=== PATIENT | male | born 1960 | race Caucasian/White ===

== ENCOUNTER 2021-11-28 12:18 | Outpatient (CLI) | payer OTHER, SELFPAY ==
--- NOTE | 2021-11-28 | ECHO_ITS ---
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 Summary 1. Complete two-dimensional, color flow and Doppler transthoracic echocardiogram is performed. 2. Normal left ventricular size. Mild sigmoid hypertrophy of the septum but otherwise no significant left ventricular hypertrophy. Good systolic function of all segments with an ejection fraction 68% and no segmental wall motion abnormalities. Normal diastolic function. 3. Global longitudinal strain was -20%, normal. 4. Mild thickening of the mitral valve leaflets with mild prolapse of the anterior leaflet. Trace mitral regurgitation. 5. The aortic valve is trileaflet. 6. Mild left atrial enlargement. 7. Mildly dilated aortic root at 4.1 cm. Sinus of Valsalva was mild to moderately dilated 4.7 cm. 8. Normal sinus rhythm. Left Ventricle Left ventricular chamber dimension is normal. Left ventricular systolic function is normal, estimated at Empty. There is no increased left ventricular wall thickness. Left ventricular septal wall motion is normal. The left ventricular diastolic function is normal. Global longitudinal strain is normal at -20 %. Right Ventricle Right ventricular chamber dimension is normal. Right ventricular systolic function is normal. Left Atria Left atrial chamber dimension is mildly enlarged. Right Atria Right atrial chamber dimension is normal. Aortic Valve The aortic valve is trileaflet. There is no aortic valve sclerosis. There is no aortic valve stenosis. There is no aortic valve regurgitation. Pulmonic Valve The pulmonic valve is normal. There is no pulmonic valve stenosis. There is no pulmonic regurgitation. Mitral Valve The mitral valve has thickened leaflets and anterior prolapse. There is no mitral valve stenosis. There is trace mitral valve regurgitation. Tricuspid Valve The tricuspid valve leaflets are normal. There is no significant tricuspid valve stenosis. There is trace tricuspid valve regurgitation. Mild pulmonary hypertension, estimated pulmonary arterial systolic pressure is 37 mmHg. Pericardium/Pleural The pericardium appears normal. There is no pericardial effusion. Inferior Vena Cava Normal inferior vena cava with >50% collapse upon inspiration consistent with Empty right atrial pressure, 10 mmHg. Aorta The aortic root size at the sinus of Valsalva is mildly dilated. The prox ascending aorta size is moderately dilated. Left Ventricular Outflow Tract Name Value Normal LVOT 2D LVOT Diameter 2.1 cm LVOT Doppler ---
== END 2021-11-28 12:19 | disposition home or self-care (01) ==
PROVIDERS: PCP Family Medicine; Visit Provider Internal Medicine Hematology & Oncology
DX: C50.922 Malignant neoplasm of unspecified site of left male breast (principal); Z17.0 Estrogen receptor positive status [ER+]
CPT/HCPCS: 93306

== ENCOUNTER 2022-08-15 06:37 | Outpatient (CLI) | payer OTHER, SELFPAY ==
--- NOTE | ~2022-08-15 | CT_ITS ---
EXAMINATION: CT diagnostic chest wo con DATE: 08/15/2022 07:00 INDICATION: Lung nodule. TECHNIQUE: Computed tomography (CT) of the chest was performed without intravenous contrast. The dose -length product was 123.81 mGy-cm. Automated exposure control and iterative reconstruction technique were employed. COMPARISON: CT dated 08/15/2022 FINDINGS: Heart size is normal. No significant pleural or pericardial effusion. There is atherosclero sis of the aorta and coronary arteries. No mediastinal or hilar lymph node enlargement. There are jennifer gical clips in the left axilla. There are bilateral noncalcified pulmonary nodules. In the right uppe r lobe anterior to the fissure there is a 5 mm nodule, image 55. There is a 3 mm nodule in the right upper lobe, image 76. There is a 3 mm nodule right upper lobe, image 81. There are left upper lobe no dules measuring 3 mm or less. There are groundglass opacities peripherally in the right upper lobe, p ossibly small airway's disease. Mild emphysema. There are a few small left lower lobe nodules, larges t located medially abutting the pleural surface, image 98, measuring 5 mm. No pneumothorax. Central l ine tip in the SVC. There is a punctate nonobstructing right renal stone measuring 2 mm. Moderate tho racic spondylosis. Mild superior endplate compression deformity of T3, likely chronic. No focal lytic or blastic lesions.. IMPRESSION: 1. Scattered bilateral pulmonary nodules measuring 5 mm or less, likely benign. Recommend follow-up l ow dose CT chest in 12 months. 2: Peripheral groundglass opacities of the left upper lobe which may be secondary to small airway di sease or infectious/inflammatory process. Reviewed, dictated and finalized at location A. ICAL ABSTRACTOR IMPRESSION: 1. Scattered bilateral pulmonary nodules measuring 5 mm or less, likely benign. Recommend follow-up low dose CT chest in 12 months. 2: Peripheral groundglass opacities of the left upper lobe which may be second rodolfo to small airway disease or infectious/inflammatory process.
== END 2022-08-15 06:38 | disposition home or self-care (01) ==
PROVIDERS: PCP Family Medicine; Visit Provider Internal Medicine Hematology & Oncology
DX: R91.8 Other nonspecific abnormal finding of lung field (principal)
CPT/HCPCS: 71250

== ENCOUNTER 2023-05-02 13:38 | Outpatient (RCR) | payer OTHER, SELFPAY ==
[2021-10-15 12:17] LABS: Basophils Absolute Auto 0.1 K/mm3 (0.0-0.1); Basophils Percent Auto 0.8 % (0.2-1.2); Eosinophils Absolute Auto 0.3 K/mm3 (0-0.3); Eosinophils Percent Auto 3.5 % (0-4.4); Hematocrit 39.2 % (42.0-52.0); Hemoglobin 12.4 g/dL (14.0-18.0); Immature Granulocyte Absolute 0.03 K/mm3 (0.00-0.031); Immature Granulocyte Percent A 0.3 % (0-0.5); Lymphocytes Absolute Auto 1.55 K/mm3 (0.9-3.2); Lymphocytes Percent Auto 16.8 % (18.3-44.2); Mean Corpuscular HGB Conc 31.6 g/dl (32-36); Mean Corpuscular Hemoglobin 31.1 pg (26-34); Mean Corpuscular Volume 98.2 fl (80-100); Mean Platelet Volume 10.3 fl (7.4-10.4); Monocytes Absolute Auto 0.7 K/mm3 (0.1-0.6); Monocytes Percent Auto 7.4 % (2.6-8.5); Neutrophils Absolute Auto 6.6 K/mm3 (1.3-6.7); Neutrophils Percent Auto 71.2 % (45.5-73.1); Platelet Count Result 249 k/mm3 (150-375); Red Blood Count 3.99 M/mm3 (4.6-6.20); Red Cell Distribution Width 13.8 % (11.5-14.5); White Blood Count 9.2 K/mm3 (4.5-10.0)
[2021-10-15 12:24] LABS: Blood Urea Nitrogen 8 mg/dL (8-26); Carbon Dioxide 30 mmol/L (22-30); Chloride 101 mmol/L (98-109); Estimated CRCL calculation 96 ml/min; Estimated Glomerular Filt Rate > 60; Glucose 81 mg/dL (70-105); Potassium 3.7 mmol/L (3.5-4.9); Sodium 141 mmol/L (138-146)
[2021-10-15 12:28] VITALS: BP 146/93; PULSE 62; RESP 18; TEMP 36.8; O2SAT 99
[2021-10-15] MEDS: SODIUM CHLORIDE 0.9% IV 500 ML 999 ML IVPB (12:57)
[2021-10-15] MEDS: PALONOSETRON HCL 0.25 MG/5 ML VIAL IV PUSH (12:59)
[2021-10-15] MEDS: FOSAPREPITANT DIMEGLUMINE 150 MG in SODIUM CHLORIDE 0.9% IV 150 ML 300 MG IVPB (12:59)
[2021-10-15] MEDS: HEPARIN SODIUM LOCK FLUSH 500 UNITS/5 ML SYRINGE IV PUSH (14:52)
[2021-10-15] MEDS: PEGFILGRASTIM (ONPRO KIT) 6 MG/0.6 ML SYRINGE SUB-Q (14:52)
--- NOTE | 2021-10-15 15:09 | PC.NURSE ---
hydration fluid ran concurrently with another infusion. No charges were incurred.
[2021-10-15 16:45] LABS: Alanine Aminotransferase 22 U/L (4-50); Albumin Level 4.2 g/dL (3.5-5.1); Alkaline Phosphatase 71 U/L (38-126); Anion Gap 5 mmol/L (8-16); Aspartate Amino Transferase 45 U/L (17-59); Bilirubin,Total 0.6 mg/dL (0.2-1.3); Blood Urea Nitrogen 10 mg/dL (9-20); Calcium 9.6 mg/dL (8.4-10.2); Carbon Dioxide 29 mmol/L (22-30); Chloride 103 mmol/L (98-107); Estimated CRCL calculation 96 ml/min; Estimated Glomerular Filt Rate > 60; Glucose 78 mg/dL (65-110); Potassium 3.8 mmol/L (3.4-5.0); Sodium 137 mmol/L (137-145)
[2021-10-29 11:30] LABS: Basophils Absolute Auto 0.1 K/mm3 (0.0-0.1); Eosinophils Absolute Auto 0.2 K/mm3 (0-0.3); Eosinophils Percent Auto 1.3 % (0-4.4); Hematocrit 38.7 % (42.0-52.0); Hemoglobin 12.3 g/dL (14.0-18.0); Immature Granulocyte Absolute 0.98 K/mm3 (0.00-0.031); Lymphocytes Absolute Auto 1.46 K/mm3 (0.9-3.2); Lymphocytes Percent Auto 11.9 % (18.3-44.2); Mean Corpuscular HGB Conc 31.8 g/dl (32-36); Mean Corpuscular Hemoglobin 31.6 pg (26-34); Mean Corpuscular Volume 99.5 fl (80-100); Mean Platelet Volume 9.9 fl (7.4-10.4); Monocytes Absolute Auto 0.8 K/mm3 (0.1-0.6); Monocytes Percent Auto 6.5 % (2.6-8.5); Neutrophils Absolute Auto 8.7 K/mm3 (1.3-6.7); Neutrophils Percent Auto 71.3 % (45.5-73.1); Platelet Count Result 272 k/mm3 (150-375); Red Blood Count 3.89 M/mm3 (4.6-6.20); Red Cell Distribution Width 14.3 % (11.5-14.5); White Blood Count 12.3 K/mm3 (4.5-10.0)
[2021-10-29 11:38] LABS: Blood Urea Nitrogen 16 mg/dL (8-26); Carbon Dioxide 28 mmol/L (22-30); Chloride 102 mmol/L (98-109); Estimated CRCL calculation 96 ml/min; Estimated Glomerular Filt Rate > 60; Glucose 95 mg/dL (70-105); Potassium 3.9 mmol/L (3.5-4.9); Sodium 141 mmol/L (138-146)
[2021-10-29 11:39] VITALS: BP 149/73; PULSE 68; RESP 18; TEMP 36.1; O2SAT 100
[2021-10-29] MEDS: FOSAPREPITANT DIMEGLUMINE 150 MG in SODIUM CHLORIDE 0.9% IV 150 ML 300 MG IVPB (11:59)
[2021-10-29] MEDS: PALONOSETRON HCL 0.25 MG/5 ML VIAL IV PUSH (11:59)
[2021-10-29] MEDS: SODIUM CHLORIDE 0.9% IV 500 ML 999 ML IVPB (12:41)
[2021-10-29 13:04] LABS: Alanine Aminotransferase 18 U/L (4-50); Albumin Level 4.2 g/dL (3.5-5.1); Alkaline Phosphatase 82 U/L (38-126); Anion Gap 7 mmol/L (8-16); Aspartate Amino Transferase 20 U/L (17-59); Bilirubin,Total 0.3 mg/dL (0.2-1.3); Blood Urea Nitrogen 16 mg/dL (9-20); Calcium 9.3 mg/dL (8.4-10.2); Carbon Dioxide 26 mmol/L (22-30); Chloride 105 mmol/L (98-107); Estimated CRCL calculation 96 ml/min; Estimated Glomerular Filt Rate > 60; Glucose 96 mg/dL (65-110); Sodium 138 mmol/L (137-145)
[2021-10-29 13:36] VITALS: BP 147/83
[2021-10-29] MEDS: HEPARIN SODIUM LOCK FLUSH 500 UNITS/5 ML SYRINGE IV PUSH (13:40)
[2021-11-12 12:00] LABS: Basophils Absolute Auto 0.1 K/mm3 (0.0-0.1); Basophils Percent Auto 3.4 % (0.2-1.2); Eosinophils Absolute Auto 0.1 K/mm3 (0-0.3); Eosinophils Percent Auto 2.9 % (0-4.4); Hemoglobin 10.1 g/dL (14.0-18.0); Immature Granulocyte Absolute 0.01 K/mm3 (0.00-0.031); Immature Granulocyte Percent A 0.5 % (0-0.5); Lymphocytes Absolute Auto 0.77 K/mm3 (0.9-3.2); Lymphocytes Percent Auto 37.2 % (18.3-44.2); Mean Corpuscular HGB Conc 31.6 g/dl (32-36); Mean Corpuscular Hemoglobin 31.9 pg (26-34); Mean Corpuscular Volume 100.9 fl (80-100); Mean Platelet Volume 9.6 fl (7.4-10.4); Monocytes Absolute Auto 0.4 K/mm3 (0.1-0.6); Monocytes Percent Auto 17.4 % (2.6-8.5); Neutrophils Absolute Auto 0.8 K/mm3 (1.3-6.7); Neutrophils Percent Auto 38.6 % (45.5-73.1); Platelet Count Result 176 k/mm3 (150-375); Red Blood Count 3.17 M/mm3 (4.6-6.20); Red Cell Distribution Width 14.6 % (11.5-14.5); White Blood Count 2.1 K/mm3 (4.5-10.0)
[2021-11-12 12:03] LABS: Blood Urea Nitrogen 12 mg/dL (8-26); Carbon Dioxide 28 mmol/L (22-30); Chloride 103 mmol/L (98-109); Estimated CRCL calculation 96 ml/min; Estimated Glomerular Filt Rate > 60; Glucose 84 mg/dL (70-105); Potassium 3.9 mmol/L (3.5-4.9); Sodium 141 mmol/L (138-146)
[2021-11-12 12:19] VITALS: BP 145/80; PULSE 66; TEMP 36.1; O2SAT 100
[2021-11-12] MEDS: FOSAPREPITANT DIMEGLUMINE 150 MG in SODIUM CHLORIDE 0.9% IV 150 ML 300 MG IVPB (12:37)
[2021-11-12] MEDS: PALONOSETRON HCL 0.25 MG/5 ML VIAL IV PUSH (12:37)
[2021-11-12 13:01] LABS: Alanine Aminotransferase 16 U/L (4-50); Albumin Level 3.7 g/dL (3.5-5.1); Alkaline Phosphatase 63 U/L (38-126); Anion Gap 3 mmol/L (8-16); Aspartate Amino Transferase 21 U/L (17-59); Bilirubin,Total < 0.1 mg/dL (0.2-1.3); Blood Urea Nitrogen 13 mg/dL (9-20); Calcium 8.4 mg/dL (8.4-10.2); Carbon Dioxide 29 mmol/L (22-30); Chloride 106 mmol/L (98-107); Estimated CRCL calculation 96 ml/min; Estimated Glomerular Filt Rate > 60; Glucose 81 mg/dL (65-110); Potassium 3.8 mmol/L (3.4-5.0); Sodium 138 mmol/L (137-145)
[2021-11-12] MEDS: SODIUM CHLORIDE 0.9% IV 500 ML 999 ML IVPB (13:30)
[2021-11-12] MEDS: PEGFILGRASTIM (ONPRO KIT) 6 MG/0.6 ML SYRINGE SUB-Q (14:46)
[2021-11-12] MEDS: HEPARIN SODIUM LOCK FLUSH 500 UNITS/5 ML SYRINGE IV PUSH (14:52)
[2021-11-12 14:59] VITALS: BP 122/81
[2021-11-26 10:17] LABS: Hematocrit 36.3 % (42.0-52.0); Hemoglobin 11.4 g/dL (14.0-18.0); Mean Corpuscular HGB Conc 31.4 g/dl (32-36); Mean Corpuscular Hemoglobin 31.6 pg (26-34); Mean Corpuscular Volume 100.6 fl (80-100); Platelet Count Result 258 k/mm3 (150-375); Red Blood Count 3.61 M/mm3 (4.6-6.20); Red Cell Distribution Width 15.8 % (11.5-14.5); White Blood Count 18.9 K/mm3 (4.5-10.0)
[2021-11-26 10:25] LABS: Blood Urea Nitrogen 19 mg/dL (8-26); Carbon Dioxide 25 mmol/L (22-30); Chloride 102 mmol/L (98-109); Estimated CRCL calculation 96 ml/min; Estimated Glomerular Filt Rate > 60; Glucose 117 mg/dL (70-105); Sodium 140 mmol/L (138-146)
[2021-11-26 10:26] LABS: Band Neutrophils Percent 17 % (0-6); Lymphocytes Absolute Manual 0.37 K/mm3 (1.1-4.5); Monocytes Absolute Manual 0.75 K/mm3 (0.1-0.90); Monocytes Percent Manual 4 % (3-9); Neutrophils Absolute Manual 17.76 K/mm3 (1.3-6.7); Neutrophils Percent Manual 77 % (46-73); Platelet Estimate Adequate (Adequate); Total Cells Counted 100
[2021-11-26 10:30] VITALS: BP 150/85; PULSE 68; TEMP 36.1; O2SAT 100
[2021-11-26] MEDS: diphenhydrAMINE HCl INJ 50 MG/ML VIAL 25 MG IV PUSH (10:47)
[2021-11-26] MEDS: ONDANSETRON INJ 4 MG/2 ML VIAL 8 MG IV PUSH (10:47)
[2021-11-26] MEDS: SODIUM CHLORIDE 0.9% IVPB (10:48)
[2021-11-26] MEDS: DEXAMETHASONE SOD IVPB (10:48)
[2021-11-26] MEDS: FAMOTIDINE 20 MG/2 ML VIAL IV PUSH (10:48)
[2021-11-26 14:36] VITALS: BP 148/88
[2021-11-26] MEDS: HEPARIN SODIUM LOCK FLUSH 500 UNITS/5 ML SYRINGE IV PUSH (14:40)
[2021-11-26 15:44] LABS: Alanine Aminotransferase 17 U/L (4-50); Albumin Level 4.3 g/dL (3.5-5.1); Alkaline Phosphatase 90 U/L (38-126); Anion Gap 6 mmol/L (8-16); Aspartate Amino Transferase 21 U/L (17-59); Bilirubin,Total 0.1 mg/dL (0.2-1.3); Blood Urea Nitrogen 18 mg/dL (9-20); Calcium 9.1 mg/dL (8.4-10.2); Carbon Dioxide 24 mmol/L (22-30); Chloride 105 mmol/L (98-107); Estimated CRCL calculation 96 ml/min; Estimated Glomerular Filt Rate > 60; Glucose 111 mg/dL (65-110); Sodium 135 mmol/L (137-145)
[2021-12-10 08:31] LABS: Basophils Percent Auto 0.2 % (0.2-1.2); Hematocrit 34.5 % (42.0-52.0); Hemoglobin 11.1 g/dL (14.0-18.0); Immature Granulocyte Absolute 0.03 K/mm3 (0.00-0.031); Immature Granulocyte Percent A 0.5 % (0-0.5); Lymphocytes Percent Auto 7.6 % (18.3-44.2); Mean Corpuscular HGB Conc 32.2 g/dl (32-36); Mean Corpuscular Hemoglobin 32.1 pg (26-34); Mean Corpuscular Volume 99.7 fl (80-100); Mean Platelet Volume 9.6 fl (7.4-10.4); Monocytes Absolute Auto 0.4 K/mm3 (0.1-0.6); Monocytes Percent Auto 5.9 % (2.6-8.5); Neutrophils Absolute Auto 5.6 K/mm3 (1.3-6.7); Neutrophils Percent Auto 85.8 % (45.5-73.1); Platelet Count Result 318 k/mm3 (150-375); Red Blood Count 3.46 M/mm3 (4.6-6.20); Red Cell Distribution Width 15.4 % (11.5-14.5); White Blood Count 6.6 K/mm3 (4.5-10.0)
[2021-12-10 08:38] LABS: Blood Urea Nitrogen 14 mg/dL (8-26); Carbon Dioxide 26 mmol/L (22-30); Chloride 104 mmol/L (98-109); Estimated CRCL calculation 111 ml/min; Estimated Glomerular Filt Rate > 60; Glucose 117 mg/dL (70-105); Ionized Calcium (POC) 1.27 mmol/L (1.11-1.31); Sodium 140 mmol/L (138-146)
[2021-12-10 09:15] VITALS: BP 137/78; PULSE 58; TEMP 36.6; O2SAT 100
[2021-12-10] MEDS: ONDANSETRON INJ 4 MG/2 ML VIAL 8 MG IV PUSH (09:26)
[2021-12-10] MEDS: FAMOTIDINE 20 MG/2 ML VIAL IV PUSH (09:27)
[2021-12-10] MEDS: diphenhydrAMINE HCl INJ 50 MG/ML VIAL 25 MG IV PUSH (09:27)
[2021-12-10] MEDS: DEXAMETHASONE SOD IVPB (09:33)
[2021-12-10] MEDS: SODIUM CHLORIDE 0.9% IVPB (09:33)
[2021-12-10 09:58] LABS: Alanine Aminotransferase 38 U/L (4-50); Albumin Level 4.3 g/dL (3.5-5.1); Alkaline Phosphatase 66 U/L (38-126); Anion Gap 9 mmol/L (8-16); Aspartate Amino Transferase 21 U/L (17-59); Bilirubin,Total 0.3 mg/dL (0.2-1.3); Blood Urea Nitrogen 15 mg/dL (9-20); Calcium 9.1 mg/dL (8.4-10.2); Carbon Dioxide 24 mmol/L (22-30); Chloride 105 mmol/L (98-107); Estimated CRCL calculation 111 ml/min; Estimated Glomerular Filt Rate > 60; Glucose 116 mg/dL (65-110); Sodium 138 mmol/L (137-145)
[2021-12-10 13:18] VITALS: BP 145/85
[2021-12-10] MEDS: HEPARIN SODIUM LOCK FLUSH 500 UNITS/5 ML SYRINGE IV PUSH (13:21)
[2021-12-24 09:14] LABS: Basophils Percent Auto 0.3 % (0.2-1.2); Eosinophils Percent Auto 0.3 % (0-4.4); Hematocrit 34.5 % (42.0-52.0); Hemoglobin 10.8 g/dL (14.0-18.0); Immature Granulocyte Absolute 0.01 K/mm3 (0.00-0.031); Immature Granulocyte Percent A 0.3 % (0-0.5); Lymphocytes Absolute Auto 0.48 K/mm3 (0.9-3.2); Lymphocytes Percent Auto 15.3 % (18.3-44.2); Mean Corpuscular HGB Conc 31.3 g/dl (32-36); Mean Corpuscular Volume 102.4 fl (80-100); Mean Platelet Volume 9.4 fl (7.4-10.4); Monocytes Absolute Auto 0.3 K/mm3 (0.1-0.6); Monocytes Percent Auto 10.5 % (2.6-8.5); Neutrophils Absolute Auto 2.3 K/mm3 (1.3-6.7); Neutrophils Percent Auto 73.3 % (45.5-73.1); Platelet Count Result 241 k/mm3 (150-375); Red Blood Count 3.37 M/mm3 (4.6-6.20); Red Cell Distribution Width 14.6 % (11.5-14.5); White Blood Count 3.1 K/mm3 (4.5-10.0)
[2021-12-24 09:17] LABS: Blood Urea Nitrogen 19 mg/dL (8-26); Carbon Dioxide 24 mmol/L (22-30); Chloride 104 mmol/L (98-109); Estimated CRCL calculation 111 ml/min; Estimated Glomerular Filt Rate > 60; Glucose 112 mg/dL (70-105); Ionized Calcium (POC) 1.26 mmol/L (1.11-1.31); Potassium 4.1 mmol/L (3.5-4.9); Sodium 139 mmol/L (138-146)
[2021-12-24 09:18] VITALS: BP 131/77; PULSE 56; TEMP 36.1; O2SAT 100
[2021-12-24] MEDS: diphenhydrAMINE HCl INJ 50 MG/ML VIAL 25 MG IV PUSH (09:37)
[2021-12-24] MEDS: ONDANSETRON INJ 4 MG/2 ML VIAL 8 MG IV PUSH (09:38)
[2021-12-24] MEDS: FAMOTIDINE 20 MG/2 ML VIAL IV PUSH (09:38)
[2021-12-24] MEDS: SODIUM CHLORIDE 0.9% IVPB (09:42)
[2021-12-24] MEDS: DEXAMETHASONE SOD IVPB (09:42)
[2021-12-24 11:11] LABS: Alanine Aminotransferase 24 U/L (4-50); Albumin Level 4.3 g/dL (3.5-5.1); Alkaline Phosphatase 75 U/L (38-126); Anion Gap 6 mmol/L (8-16); Aspartate Amino Transferase 21 U/L (17-59); Bilirubin,Total 0.4 mg/dL (0.2-1.3); Blood Urea Nitrogen 19 mg/dL (9-20); Calcium 8.9 mg/dL (8.4-10.2); Carbon Dioxide 23 mmol/L (22-30); Chloride 106 mmol/L (98-107); Estimated CRCL calculation 111 ml/min; Estimated Glomerular Filt Rate > 60; Glucose 111 mg/dL (65-110); Potassium 4.1 mmol/L (3.4-5.0); Sodium 135 mmol/L (137-145)
[2021-12-24] MEDS: HEPARIN SODIUM LOCK FLUSH 500 UNITS/5 ML SYRINGE IV PUSH (13:30)
[2021-12-24 13:32] VITALS: BP 139/82
[2022-01-07 09:07] LABS: Basophils Percent Auto 0.5 % (0.2-1.2); Hematocrit 34.2 % (42.0-52.0); Hemoglobin 11.2 g/dL (14.0-18.0); Immature Granulocyte Absolute 0.03 K/mm3 (0.00-0.031); Immature Granulocyte Percent A 1.5 % (0-0.5); Lymphocytes Absolute Auto 0.33 K/mm3 (0.9-3.2); Lymphocytes Percent Auto 16.5 % (18.3-44.2); Mean Corpuscular HGB Conc 32.7 g/dl (32-36); Mean Corpuscular Hemoglobin 31.7 pg (26-34); Mean Corpuscular Volume 96.9 fl (80-100); Mean Platelet Volume 9.5 fl (7.4-10.4); Monocytes Absolute Auto 0.4 K/mm3 (0.1-0.6); Neutrophils Absolute Auto 1.3 K/mm3 (1.3-6.7); Neutrophils Percent Auto 62.5 % (45.5-73.1); Platelet Count Result 282 k/mm3 (150-375); Red Blood Count 3.53 M/mm3 (4.6-6.20); Red Cell Distribution Width 14.3 % (11.5-14.5)
[2022-01-07 09:11] LABS: Blood Urea Nitrogen 14 mg/dL (8-26); Carbon Dioxide 25 mmol/L (22-30); Chloride 103 mmol/L (98-109); Estimated CRCL calculation 111 ml/min; Estimated Glomerular Filt Rate > 60; Glucose 118 mg/dL (70-105); Ionized Calcium (POC) 1.27 mmol/L (1.11-1.31); Potassium 3.8 mmol/L (3.5-4.9); Sodium 138 mmol/L (138-146)
[2022-01-07 09:55] VITALS: BP 135/81; PULSE 61; RESP 16; TEMP 35.7; O2SAT 100
[2022-01-07] MEDS: ONDANSETRON INJ 4 MG/2 ML VIAL 8 MG IV PUSH (10:18)
[2022-01-07] MEDS: FAMOTIDINE 20 MG/2 ML VIAL IV PUSH (10:18)
[2022-01-07] MEDS: diphenhydrAMINE HCl INJ 50 MG/ML VIAL 25 MG IV PUSH (10:18)
[2022-01-07] MEDS: SODIUM CHLORIDE 0.9% IVPB (10:24)
[2022-01-07] MEDS: DEXAMETHASONE SOD IVPB (10:24)
[2022-01-07 10:25] LABS: Alanine Aminotransferase 42 U/L (6-50); Albumin Level 4.3 g/dL (3.5-5.1); Alkaline Phosphatase 70 U/L (38-126); Anion Gap 7 mmol/L (8-16); Aspartate Amino Transferase 21 U/L (17-59); Blood Urea Nitrogen 14 mg/dL (9-20); Calcium 9.2 mg/dL (8.4-10.2); Carbon Dioxide 25 mmol/L (22-30); Chloride 104 mmol/L (98-107); Estimated CRCL calculation 111 ml/min; Estimated Glomerular Filt Rate > 60; Glucose 119 mg/dL (65-110); Potassium 3.8 mmol/L (3.4-5.0); Sodium 136 mmol/L (137-145)
[2022-01-07 10:34] LABS: Bilirubin,Total 0.4 mg/dL (0.2-1.3)
[2022-01-07 13:43] VITALS: BP 142/83
[2022-01-07] MEDS: HEPARIN SODIUM LOCK FLUSH 500 UNITS/5 ML SYRINGE IV PUSH (13:58)
[2022-02-04 09:32] LABS: Basophils Absolute Auto 0.1 K/mm3 (0.0-0.1); Basophils Percent Auto 0.8 % (0.2-1.2); Eosinophils Absolute Auto 0.1 K/mm3 (0-0.3); Eosinophils Percent Auto 1.4 % (0-4.4); Hematocrit 37.7 % (42.0-52.0); Hemoglobin 12.3 g/dL (14.0-18.0); Immature Granulocyte Absolute 0.05 K/mm3 (0.00-0.031); Immature Granulocyte Percent A 0.6 % (0-0.5); Lymphocytes Absolute Auto 0.97 K/mm3 (0.9-3.2); Lymphocytes Percent Auto 12.6 % (18.3-44.2); Mean Corpuscular HGB Conc 32.6 g/dl (32-36); Mean Corpuscular Volume 98.2 fl (80-100); Mean Platelet Volume 9.9 fl (7.4-10.4); Monocytes Absolute Auto 0.6 K/mm3 (0.1-0.6); Monocytes Percent Auto 7.3 % (2.6-8.5); Neutrophils Percent Auto 77.3 % (45.5-73.1); Platelet Count Result 275 k/mm3 (150-375); Red Blood Count 3.84 M/mm3 (4.6-6.20); Red Cell Distribution Width 14.7 % (11.5-14.5); White Blood Count 7.7 K/mm3 (4.5-10.0)
[2022-02-04 09:35] LABS: Blood Urea Nitrogen 9 mg/dL (8-26); Carbon Dioxide 28 mmol/L (22-30); Chloride 104 mmol/L (98-109); Estimated CRCL calculation 85 ml/min; Estimated Glomerular Filt Rate > 60; Glucose 100 mg/dL (70-105); Ionized Calcium (POC) 1.24 mmol/L (1.11-1.31); Potassium 4.3 mmol/L (3.5-4.9); Sodium 141 mmol/L (138-146)
[2022-02-04 13:36] LABS: Alanine Aminotransferase 20 U/L (6-50); Albumin Level 4.3 g/dL (3.5-5.1); Alkaline Phosphatase 62 U/L (38-126); Anion Gap 5 mmol/L (8-16); Aspartate Amino Transferase 21 U/L (17-59); Bilirubin,Total 0.6 mg/dL (0.2-1.3); Blood Urea Nitrogen 10 mg/dL (9-20); Calcium 9.4 mg/dL (8.4-10.2); Carbon Dioxide 31 mmol/L (22-30); Chloride 105 mmol/L (98-107); Estimated CRCL calculation 96 ml/min; Estimated Glomerular Filt Rate > 60; Glucose 95 mg/dL (65-110); Potassium 4.3 mmol/L (3.4-5.0); Sodium 141 mmol/L (137-145)
[2022-02-15 08:27] LABS: Basophils Percent Auto 0.6 % (0.2-1.2); Eosinophils Absolute Auto 0.3 K/mm3 (0-0.3); Eosinophils Percent Auto 4.2 % (0-4.4); Hematocrit 38.2 % (42.0-52.0); Hemoglobin 12.4 g/dL (14.0-18.0); Immature Granulocyte Absolute 0.02 K/mm3 (0.00-0.031); Immature Granulocyte Percent A 0.3 % (0-0.5); Lymphocytes Absolute Auto 0.96 K/mm3 (0.9-3.2); Lymphocytes Percent Auto 14.5 % (18.3-44.2); Mean Corpuscular HGB Conc 32.5 g/dl (32-36); Mean Corpuscular Volume 98.5 fl (80-100); Mean Platelet Volume 9.6 fl (7.4-10.4); Monocytes Absolute Auto 0.5 K/mm3 (0.1-0.6); Neutrophils Absolute Auto 4.8 K/mm3 (1.3-6.7); Neutrophils Percent Auto 72.4 % (45.5-73.1); Platelet Count Result 251 k/mm3 (150-375); Red Blood Count 3.88 M/mm3 (4.6-6.20); Red Cell Distribution Width 14.8 % (11.5-14.5); White Blood Count 6.6 K/mm3 (4.5-10.0)
[2022-02-15 08:31] LABS: Blood Urea Nitrogen 11 mg/dL (8-26); Carbon Dioxide 28 mmol/L (22-30); Chloride 102 mmol/L (98-109); Estimated CRCL calculation 76 ml/min; Estimated Glomerular Filt Rate > 60; Glucose 102 mg/dL (70-105); Ionized Calcium (POC) 1.27 mmol/L (1.11-1.31); Potassium 4.6 mmol/L (3.5-4.9); Sodium 139 mmol/L (138-146)
[2022-02-15 13:17] LABS: Alanine Aminotransferase 24 U/L (6-50); Albumin Level 4.2 g/dL (3.5-5.1); Alkaline Phosphatase 64 U/L (38-126); Anion Gap 6 mmol/L (8-16); Aspartate Amino Transferase 22 U/L (17-59); Bilirubin,Total 1.5 mg/dL (0.2-1.3); Blood Urea Nitrogen 12 mg/dL (9-20); Calcium 9.4 mg/dL (8.4-10.2); Carbon Dioxide 27 mmol/L (22-30); Chloride 104 mmol/L (98-107); Estimated CRCL calculation 85 ml/min; Estimated Glomerular Filt Rate > 60; Glucose 98 mg/dL (65-110); Potassium 4.7 mmol/L (3.4-5.0); Sodium 137 mmol/L (137-145)
[2022-03-04] MEDS: HEPARIN SODIUM LOCK FLUSH 500 UNITS/5 ML SYRINGE IV PUSH (08:28)
[2022-03-15 09:15] LABS: Basophils Absolute Auto 0.1 K/mm3 (0.0-0.1); Eosinophils Absolute Auto 0.3 K/mm3 (0-0.3); Eosinophils Percent Auto 5.9 % (0-4.4); Hematocrit 40.5 % (42.0-52.0); Hemoglobin 13.1 g/dL (14.0-18.0); Immature Granulocyte Absolute 0.02 K/mm3 (0.00-0.031); Immature Granulocyte Percent A 0.4 % (0-0.5); Lymphocytes Percent Auto 12.2 % (18.3-44.2); Mean Corpuscular HGB Conc 32.3 g/dl (32-36); Mean Corpuscular Hemoglobin 31.7 pg (26-34); Mean Corpuscular Volume 98.1 fl (80-100); Mean Platelet Volume 9.5 fl (7.4-10.4); Monocytes Absolute Auto 0.6 K/mm3 (0.1-0.6); Neutrophils Absolute Auto 3.4 K/mm3 (1.3-6.7); Neutrophils Percent Auto 68.5 % (45.5-73.1); Platelet Count Result 269 k/mm3 (150-375); Red Blood Count 4.13 M/mm3 (4.6-6.20); Red Cell Distribution Width 14.6 % (11.5-14.5); White Blood Count 4.9 K/mm3 (4.5-10.0)
[2022-03-15 09:18] LABS: Blood Urea Nitrogen 12 mg/dL (8-26); Carbon Dioxide 24 mmol/L (22-30); Chloride 103 mmol/L (98-109); Estimated CRCL calculation 76 ml/min; Estimated Glomerular Filt Rate > 60; Glucose 107 mg/dL (70-105); Ionized Calcium (POC) 1.18 mmol/L (1.11-1.31); Potassium 4.3 mmol/L (3.5-4.9); Sodium 139 mmol/L (138-146)
[2022-03-15 12:05] LABS: Alanine Aminotransferase 19 U/L (6-50); Albumin Level 4.3 g/dL (3.5-5.1); Alkaline Phosphatase 66 U/L (38-126); Anion Gap 7 mmol/L (8-16); Aspartate Amino Transferase 19 U/L (17-59); Bilirubin,Total 0.8 mg/dL (0.2-1.3); Blood Urea Nitrogen 14 mg/dL (9-20); Calcium 9.5 mg/dL (8.4-10.2); Carbon Dioxide 26 mmol/L (22-30); Chloride 104 mmol/L (98-107); Estimated CRCL calculation 76 ml/min; Estimated Glomerular Filt Rate > 60; Glucose 105 mg/dL (65-110); Potassium 4.3 mmol/L (3.4-5.0); Sodium 137 mmol/L (137-145)
[2022-04-30] MEDS: HEPARIN SODIUM LOCK FLUSH 500 UNITS/5 ML SYRINGE IV PUSH (08:25)
[2022-05-16 13:45] LABS: Basophils Absolute Auto 0.1 K/mm3 (0.0-0.1); Eosinophils Absolute Auto 0.2 K/mm3 (0-0.3); Eosinophils Percent Auto 2.6 % (0-4.4); Hematocrit 38.2 % (42.0-52.0); Hemoglobin 12.3 g/dL (14.0-18.0); Immature Granulocyte Absolute 0.02 K/mm3 (0.00-0.031); Immature Granulocyte Percent A 0.3 % (0-0.5); Lymphocytes Absolute Auto 0.76 K/mm3 (0.9-3.2); Lymphocytes Percent Auto 11.1 % (18.3-44.2); Mean Corpuscular HGB Conc 32.2 g/dl (32-36); Mean Corpuscular Hemoglobin 32.1 pg (26-34); Mean Corpuscular Volume 99.7 fl (80-100); Mean Platelet Volume 9.4 fl (7.4-10.4); Monocytes Absolute Auto 0.5 K/mm3 (0.1-0.6); Monocytes Percent Auto 6.9 % (2.6-8.5); Neutrophils Absolute Auto 5.3 K/mm3 (1.3-6.7); Neutrophils Percent Auto 78.1 % (45.5-73.1); Platelet Count Result 238 k/mm3 (150-375); Red Blood Count 3.83 M/mm3 (4.6-6.20); Red Cell Distribution Width 13.2 % (11.5-14.5); White Blood Count 6.8 K/mm3 (4.5-10.0)
[2022-05-16 13:49] LABS: Blood Urea Nitrogen 9 mg/dL (8-26); Carbon Dioxide 26 mmol/L (22-30); Chloride 101 mmol/L (98-109); Estimated CRCL calculation 76 ml/min; Estimated Glomerular Filt Rate > 60; Glucose 95 mg/dL (70-105); Ionized Calcium (POC) 1.25 mmol/L (1.11-1.31); Potassium 3.7 mmol/L (3.5-4.9); Sodium 140 mmol/L (138-146)
[2022-05-16 14:35] LABS: Alanine Aminotransferase 19 U/L (6-50); Albumin Level 4.2 g/dL (3.5-5.1); Alkaline Phosphatase 52 U/L (38-126); Anion Gap 8 mmol/L (8-16); Aspartate Amino Transferase 21 U/L (17-59); Bilirubin,Total 0.7 mg/dL (0.2-1.3); Blood Urea Nitrogen 10 mg/dL (9-20); Carbon Dioxide 25 mmol/L (22-30); Chloride 103 mmol/L (98-107); Estimated CRCL calculation 76 ml/min; Estimated Glomerular Filt Rate > 60; Glucose 94 mg/dL (65-110); Potassium 3.7 mmol/L (3.4-5.0); Sodium 136 mmol/L (137-145)
[2022-05-19 15:14] LABS: CA 15-3 9 U/mL (<32)
[2022-06-25] MEDS: HEPARIN SODIUM LOCK FLUSH 500 UNITS/5 ML SYRINGE IV PUSH (08:26)
[2022-08-20] MEDS: HEPARIN SODIUM LOCK FLUSH 500 UNITS/5 ML SYRINGE IV PUSH (08:26)
[2022-08-20 08:28] LABS: Basophils Absolute Auto 0.1 K/mm3 (0.0-0.1); Basophils Percent Auto 1.5 % (0.2-1.2); Eosinophils Absolute Auto 0.3 K/mm3 (0-0.3); Eosinophils Percent Auto 5.5 % (0-4.4); Hematocrit 40.4 % (42.0-52.0); Hemoglobin 13.4 g/dL (14.0-18.0); Immature Granulocyte Absolute 0.04 K/mm3 (0.00-0.031); Immature Granulocyte Percent A 0.7 % (0-0.5); Lymphocytes Absolute Auto 1.17 K/mm3 (0.9-3.2); Lymphocytes Percent Auto 20.1 % (18.3-44.2); Mean Corpuscular HGB Conc 33.2 g/dl (32-36); Mean Corpuscular Volume 96.4 fl (80-100); Monocytes Absolute Auto 0.6 K/mm3 (0.1-0.6); Monocytes Percent Auto 10.5 % (2.6-8.5); Neutrophils Absolute Auto 3.6 K/mm3 (1.3-6.7); Neutrophils Percent Auto 61.7 % (45.5-73.1); Platelet Count Result 222 k/mm3 (150-375); Red Blood Count 4.19 M/mm3 (4.6-6.20); Red Cell Distribution Width 13.8 % (11.5-14.5); White Blood Count 5.8 K/mm3 (4.5-10.0)
[2022-08-20 09:00] LABS: Alanine Aminotransferase 18 U/L (6-50); Albumin Level 4.3 g/dL (3.5-5.1); Alkaline Phosphatase 63 U/L (38-126); Anion Gap 6 mmol/L (8-16); Aspartate Amino Transferase 24 U/L (17-59); Bilirubin,Total 0.6 mg/dL (0.2-1.3); Blood Urea Nitrogen 12 mg/dL (9-20); Calcium 8.9 mg/dL (8.4-10.2); Carbon Dioxide 28 mmol/L (22-30); Chloride 104 mmol/L (98-107); Estimated CRCL calculation 96 ml/min; Estimated Glomerular Filt Rate > 60; Glucose 99 mg/dL (65-110); Potassium 4.2 mmol/L (3.4-5.0); Sodium 138 mmol/L (137-145)
[2022-08-22 23:05] LABS: CA 15-3 9 U/mL (<32)
[2022-12-25 12:32] LABS: Basophils Absolute Auto 0.1 K/mm3 (0.0-0.1); Basophils Percent Auto 0.8 % (0.2-1.2); Eosinophils Absolute Auto 0.1 K/mm3 (0-0.3); Eosinophils Percent Auto 1.7 % (0-4.4); Hematocrit 41.5 % (42.0-52.0); Hemoglobin 13.7 g/dL (14.0-18.0); Immature Granulocyte Absolute 0.02 K/mm3 (0.00-0.031); Immature Granulocyte Percent A 0.2 % (0-0.5); Lymphocytes Absolute Auto 1.05 K/mm3 (0.9-3.2); Lymphocytes Percent Auto 12.6 % (18.3-44.2); Mean Platelet Volume 9.9 fl (7.4-10.4); Monocytes Absolute Auto 0.6 K/mm3 (0.1-0.6); Monocytes Percent Auto 7.2 % (2.6-8.5); Neutrophils Absolute Auto 6.4 K/mm3 (1.3-6.7); Neutrophils Percent Auto 77.5 % (45.5-73.1); Platelet Count Result 254 k/mm3 (150-375); Red Blood Count 4.28 M/mm3 (4.6-6.20); Red Cell Distribution Width 13.2 % (11.5-14.5); White Blood Count 8.3 K/mm3 (4.5-10.0)
[2022-12-25 12:39] LABS: Blood Urea Nitrogen 13 mg/dL (8-26); Carbon Dioxide 28 mmol/L (22-30); Chloride 102 mmol/L (98-109); Estimated CRCL calculation 75 ml/min; Estimated Glomerular Filt Rate > 60; Glucose 103 mg/dL (70-105); Ionized Calcium (POC) 1.26 mmol/L (1.11-1.31); Potassium 3.9 mmol/L (3.5-4.9); Sodium 140 mmol/L (138-146)
[2022-12-25 16:39] LABS: Alanine Aminotransferase 33 U/L (6-50); Albumin Level 4.6 g/dL (3.5-5.1); Alkaline Phosphatase 60 U/L (38-126); Anion Gap 4 mmol/L (8-16); Aspartate Amino Transferase 29 U/L (17-59); Bilirubin,Total 0.9 mg/dL (0.2-1.3); Blood Urea Nitrogen 14 mg/dL (9-20); Calcium 9.7 mg/dL (8.4-10.2); Carbon Dioxide 31 mmol/L (22-30); Chloride 103 mmol/L (98-107); Estimated CRCL calculation 75 ml/min; Estimated Glomerular Filt Rate > 60; Glucose 102 mg/dL (65-110); Sodium 138 mmol/L (137-145)
[2022-12-29 15:48] LABS: CA 15-3 6 U/mL (<32)
[2023-05-02 13:51] LABS: Basophils Percent Auto 0.6 % (0.2-1.2); Eosinophils Absolute Auto 0.3 K/mm3 (0-0.3); Eosinophils Percent Auto 3.9 % (0-4.4); Hematocrit 37.8 % (42.0-52.0); Hemoglobin 12.6 g/dL (14.0-18.0); Immature Granulocyte Absolute 0.02 K/mm3 (0.00-0.031); Immature Granulocyte Percent A 0.3 % (0-0.5); Lymphocytes Percent Auto 20.4 % (18.3-44.2); Mean Corpuscular HGB Conc 33.3 g/dl (32-36); Mean Corpuscular Hemoglobin 32.6 pg (26-34); Mean Corpuscular Volume 97.7 fl (80-100); Mean Platelet Volume 9.9 fl (7.4-10.4); Monocytes Absolute Auto 0.5 K/mm3 (0.1-0.6); Monocytes Percent Auto 7.7 % (2.6-8.5); Neutrophils Absolute Auto 4.3 K/mm3 (1.3-6.7); Neutrophils Percent Auto 67.1 % (45.5-73.1); Platelet Count Result 211 k/mm3 (150-375); Red Blood Count 3.87 M/mm3 (4.6-6.20); Red Cell Distribution Width 13.6 % (11.5-14.5); White Blood Count 6.4 K/mm3 (4.5-10.0)
[2023-05-02 15:25] LABS: Alanine Aminotransferase 20 U/L (6-50); Albumin Level 4.2 g/dL (3.5-5.1); Alkaline Phosphatase 58 U/L (38-126); Anion Gap 5 mmol/L (8-16); Aspartate Amino Transferase 23 U/L (17-59); Bilirubin,Total 0.7 mg/dL (0.2-1.3); Blood Urea Nitrogen 14 mg/dL (9-20); Carbon Dioxide 30 mmol/L (22-30); Chloride 103 mmol/L (98-107); Estimated CRCL calculation 75 ml/min; Estimated Glomerular Filt Rate > 60; Glucose 90 mg/dL (65-110); Potassium 3.9 mmol/L (3.4-5.0); Sodium 138 mmol/L (137-145)
[2023-05-07 20:44] LABS: CA 15-3 7 U/mL (<32)
== END 2023-05-08 14:20 ==
LOC: AMCINF 13:38
PROVIDERS: Visit Provider Internal Medicine Hematology & Oncology
DX: C50.922 Malignant neoplasm of unspecified site of left male breast (principal); C77.3 Secondary and unspecified malignant neoplasm of axilla and upper limb lymph nodes; Z17.0 Estrogen receptor positive status [ER+]; I10 Essential (primary) hypertension; F17.290 Nicotine dependence, other tobacco product, uncomplicated
CPT/HCPCS: 36415; 36592; 80047; 80053; 85025; 86300; 96367; 96368; 96372; 96375; 96411; 96413; 96415; 96523; J1100; J1200; J1453; J2405; J2469; J2506; J7040; J7050; J9000; J9070; J9267

== ENCOUNTER 2023-07-28 08:00 | Outpatient (CLI) | payer OTHER, SELFPAY ==
--- NOTE | ~2023-07-28 | CT_ITS ---
Clinical Indication: Lung nodule CT Scan of the Chest with Contrast: Technique: Contiguous sections were acquired throughout the chest after intravenous administration of 75 cc of Omnipaque 350. Dose reduction technique was used on this scan by utilizing automated exposu re control and iterative reconstruction technique. The dose-length product (DLP) was 468.98 mGy-cm. COMPARISON: 08/15/2022 Findings: There is no evidence of any significant mediastinal, hilar or axillary lymphadenopathy. There is no f illing defect in the pulmonary arterial tree to suggest pulmonary embolus. There is no evidence of ao rtic dissection or aneurysm. There is no evidence of pleural or pericardial effusion. Stable 6 mm right upper lobe pulmonary nodule (axial image 52). Stable 3 mm anteromedial right upper lobe pulmonary nodule (axial and 72). Stable calcified granuloma in the right upper lobe noted. Stabl e 5 mm pleural-based nodule at the medial left lung base (axial image 91). Images through the upper abdomen reveal no abnormalities. Impression: Stable subcentimeter pulmonary nodules, as detailed above. Reviewed, dictated and finalized at location . ILE COLORIST FORMULATOR Impression: Stable subcentimeter pulmonary nodules, as detailed above.
[2023-07-28 09:01] LABS: Estimated Glomerular Filt Rate > 60
== END 2023-07-28 08:01 | disposition home or self-care (01) ==
PROVIDERS: PCP Family Medicine; Visit Provider Internal Medicine Hematology & Oncology
DX: R91.8 Other nonspecific abnormal finding of lung field (principal)
CPT/HCPCS: 71260; Q9967

== ENCOUNTER 2023-09-05 14:43 | Outpatient (CLI) | payer OTHER, SELFPAY ==
[2023-09-05 14:58] LABS: Basophils Absolute Auto 0.1 K/mm3 (0.0-0.1); Basophils Percent Auto 0.7 % (0.2-1.2); Eosinophils Absolute Auto 0.3 K/mm3 (0-0.3); Eosinophils Percent Auto 4.1 % (0-4.4); Hematocrit 38.5 % (42.0-52.0); Hemoglobin 12.9 g/dL (14.0-18.0); Immature Granulocyte Absolute 0.02 K/mm3 (0.00-0.031); Immature Granulocyte Percent A 0.2 % (0-0.5); Lymphocytes Absolute Auto 1.46 K/mm3 (0.9-3.2); Lymphocytes Percent Auto 17.8 % (18.3-44.2); Mean Corpuscular HGB Conc 33.5 g/dl (32-36); Mean Corpuscular Hemoglobin 32.1 pg (26-34); Mean Corpuscular Volume 95.8 fl (80-100); Monocytes Absolute Auto 0.6 K/mm3 (0.1-0.6); Monocytes Percent Auto 6.7 % (2.6-8.5); Neutrophils Absolute Auto 5.8 K/mm3 (1.3-6.7); Neutrophils Percent Auto 70.5 % (45.5-73.1); Platelet Count Result 248 k/mm3 (150-375); Red Blood Count 4.02 M/mm3 (4.6-6.20); Red Cell Distribution Width 13.5 % (11.5-14.5); White Blood Count 8.2 K/mm3 (4.5-10.0)
[2023-09-05 16:15] LABS: Alanine Aminotransferase 21 U/L (6-50); Albumin Level 4.2 g/dL (3.5-5.1); Alkaline Phosphatase 64 U/L (38-126); Anion Gap 8 mmol/L (8-16); Aspartate Amino Transferase 43 U/L (17-59); Blood Urea Nitrogen 11 mg/dL (9-20); Calcium 9.3 mg/dL (8.4-10.2); Carbon Dioxide 29 mmol/L (22-30); Chloride 102 mmol/L (98-107); Estimated Glomerular Filt Rate > 60; Glucose 91 mg/dL (65-110); Potassium 3.7 mmol/L (3.4-5.0); Sodium 139 mmol/L (137-145)
[2023-09-09 19:28] LABS: CA 15-3 6 U/mL (<32)
== END 2023-09-05 14:44 | disposition home or self-care (01) ==
LOC: ANHLAB 14:45
PROVIDERS: Visit Provider Internal Medicine Hematology & Oncology
DX: C50.822 Malignant neoplasm of overlapping sites of left male breast (principal); Z17.0 Estrogen receptor positive status [ER+]
CPT/HCPCS: 36415; 80053; 85025; 86300

== ENCOUNTER 2023-10-27 14:41 | Outpatient (CLI) | payer OTHER, SELFPAY ==
[2023-10-27 14:53] LABS: Basophils Absolute Auto 0.1 K/mm3 (0.0-0.1); Basophils Percent Auto 0.7 % (0.2-1.2); Eosinophils Absolute Auto 0.1 K/mm3 (0-0.3); Eosinophils Percent Auto 1.3 % (0-4.4); Hematocrit 37.4 % (42.0-52.0); Hemoglobin 12.4 g/dL (14.0-18.0); Immature Granulocyte Absolute 0.03 K/mm3 (0.00-0.031); Immature Granulocyte Percent A 0.3 % (0-0.5); Lymphocytes Absolute Auto 1.37 K/mm3 (0.9-3.2); Lymphocytes Percent Auto 14.6 % (18.3-44.2); Mean Corpuscular HGB Conc 33.2 g/dl (32-36); Mean Corpuscular Volume 96.6 fl (80-100); Mean Platelet Volume 9.8 fl (7.4-10.4); Monocytes Absolute Auto 0.6 K/mm3 (0.1-0.6); Monocytes Percent Auto 5.9 % (2.6-8.5); Neutrophils Absolute Auto 7.2 K/mm3 (1.3-6.7); Neutrophils Percent Auto 77.2 % (45.5-73.1); Platelet Count Result 237 k/mm3 (150-375); Red Blood Count 3.87 M/mm3 (4.6-6.20); Red Cell Distribution Width 13.7 % (11.5-14.5); White Blood Count 9.4 K/mm3 (4.5-10.0)
[2023-10-27 16:06] LABS: Alanine Aminotransferase 22 U/L (6-50); Albumin Level 4.3 g/dL (3.5-5.1); Alkaline Phosphatase 65 U/L (38-126); Anion Gap 6 mmol/L (8-16); Aspartate Amino Transferase 29 U/L (17-59); Bilirubin,Total 0.8 mg/dL (0.2-1.3); Blood Urea Nitrogen 10 mg/dL (9-20); Calcium 9.4 mg/dL (8.4-10.2); Carbon Dioxide 27 mmol/L (22-30); Chloride 105 mmol/L (98-107); Estimated Glomerular Filt Rate > 60; Glucose 94 mg/dL (65-110); Potassium 3.7 mmol/L (3.4-5.0); Sodium 138 mmol/L (137-145)
[2023-10-30 07:09] LABS: CA 15-3 5 U/mL (<32)
== END 2023-10-27 14:42 | disposition home or self-care (01) ==
LOC: ANHLAB 14:43
PROVIDERS: Visit Provider Internal Medicine Hematology & Oncology
DX: C50.822 Malignant neoplasm of overlapping sites of left male breast (principal); Z17.0 Estrogen receptor positive status [ER+]
CPT/HCPCS: 36415; 80053; 85025; 86300

== ENCOUNTER 2024-03-01 15:08 | Outpatient (CLI) | payer OTHER, SELFPAY ==
[2024-03-01 15:23] LABS: Basophils Absolute Auto 0.1 K/mm3 (0.0-0.1); Basophils Percent Auto 0.8 % (0.2-1.2); Eosinophils Absolute Auto 0.3 K/mm3 (0-0.3); Eosinophils Percent Auto 3.3 % (0-4.4); Hematocrit 38.7 % (42.0-52.0); Immature Granulocyte Absolute 0.04 K/mm3 (0.00-0.031); Immature Granulocyte Percent A 0.5 % (0-0.5); Lymphocytes Absolute Auto 1.53 K/mm3 (0.9-3.2); Lymphocytes Percent Auto 18.3 % (18.3-44.2); Mean Corpuscular HGB Conc 33.6 g/dl (32-36); Mean Corpuscular Hemoglobin 32.2 pg (26-34); Mean Corpuscular Volume 95.8 fl (80-100); Mean Platelet Volume 9.9 fl (7.4-10.4); Monocytes Absolute Auto 0.5 K/mm3 (0.1-0.6); Monocytes Percent Auto 6.2 % (2.6-8.5); Neutrophils Absolute Auto 5.9 K/mm3 (1.3-6.7); Neutrophils Percent Auto 70.9 % (45.5-73.1); Platelet Count Result 251 k/mm3 (150-375); Red Blood Count 4.04 M/mm3 (4.6-6.20); Red Cell Distribution Width 13.6 % (11.5-14.5); White Blood Count 8.4 K/mm3 (4.5-10.0)
[2024-03-01 16:46] LABS: Chloride 101 mmol/L (98-107)
[2024-03-01 16:56] LABS: Alanine Aminotransferase 17 U/L (6-50); Albumin Level 4.5 g/dL (3.5-5.1); Alkaline Phosphatase 62 U/L (38-126); Anion Gap 11 mmol/L (4-12); Aspartate Amino Transferase 23 U/L (17-59); Bilirubin,Total 0.6 mg/dL (0.2-1.3); Blood Urea Nitrogen 12 mg/dL (9-20); Calcium 9.4 mg/dL (8.4-10.2); Carbon Dioxide 27 mmol/L (22-30); Estimated Glomerular Filt Rate > 60; Glucose 91 mg/dL (65-110); Potassium 3.9 mmol/L (3.4-5.0); Sodium 139 mmol/L (137-145)
[2024-03-02 14:17] LABS: CA 15-3 5 U/mL (<32)
== END 2024-03-01 15:09 | disposition home or self-care (01) ==
LOC: ANHLAB 15:10
PROVIDERS: Visit Provider Internal Medicine Hematology & Oncology
DX: C50.822 Malignant neoplasm of overlapping sites of left male breast (principal); Z17.0 Estrogen receptor positive status [ER+]
CPT/HCPCS: 36415; 80053; 85025; 86300

== ENCOUNTER 2024-08-30 07:16 | Outpatient (CLI) | payer OTHER, SELFPAY ==
--- NOTE | ~2024-08-30 | CT_ITS ---
Clinical Indication: Lung nodule CT Scan of the Chest with Contrast: Technique: Contiguous sections were acquired throughout the chest after intravenous administration of 75 cc of Omnipaque 350. Dose reduction technique was used on this scan by utilizing automated exposu re control and iterative reconstruction technique. The dose-length product (DLP) was 286.81 mGy-cm. COMPARISON: 07/28/2023 Findings: There is no evidence of any significant mediastinal, hilar or axillary lymphadenopathy. There is no f illing defect in the pulmonary arterial tree to suggest pulmonary embolus. There is no evidence of ao rtic dissection or aneurysm. There is no evidence of pleural or pericardial effusion. Stable 8 mm right upper lobe pulmonary nodule (axial image 53). Stable 5 mm pleural-based nodule medi al left lung base (axial image 93). Images through the upper abdomen reveal no abnormalities. Impression: Stable pulmonary nodules, as above, largest measuring 8 mm. Reviewed, dictated and finalized at [facility]. OR ACCOUNTANT Impression: Stable pulmonary nodules, as above, largest measuring 8 mm.
[2024-08-30 07:49] LABS: Estimated Glomerular Filt Rate > 60
== END 2024-08-30 07:17 | disposition home or self-care (01) ==
PROVIDERS: PCP Internal Medicine Hematology & Oncology; Visit Provider Internal Medicine Hematology & Oncology
DX: R91.1 Solitary pulmonary nodule (principal); C34.11 Malignant neoplasm of upper lobe, right bronchus or lung
CPT/HCPCS: 71260; Q9967

== ENCOUNTER 2024-09-13 14:47 | Outpatient (CLI) | payer OTHER, SELFPAY ==
[2024-09-13 14:56] LABS: Basophils Absolute Auto 0.1 K/mm3 (0.0-0.1); Eosinophils Absolute Auto 0.1 K/mm3 (0-0.3); Eosinophils Percent Auto 1.4 % (0-4.4); Hematocrit 40.4 % (42.0-52.0); Hemoglobin 13.2 g/dL (14.0-18.0); Immature Granulocyte Absolute 0.04 K/mm3 (0.00-0.031); Immature Granulocyte Percent A 0.4 % (0-0.5); Lymphocytes Absolute Auto 1.58 K/mm3 (0.9-3.2); Lymphocytes Percent Auto 17.5 % (18.3-44.2); Mean Corpuscular HGB Conc 32.7 g/dl (32-36); Mean Corpuscular Hemoglobin 32.1 pg (26-34); Mean Corpuscular Volume 98.3 fl (80-100); Monocytes Absolute Auto 0.5 K/mm3 (0.1-0.6); Neutrophils Absolute Auto 6.7 K/mm3 (1.3-6.7); Neutrophils Percent Auto 73.7 % (45.5-73.1); Platelet Count Result 236 k/mm3 (150-375); Red Blood Count 4.11 M/mm3 (4.6-6.20); Red Cell Distribution Width 13.4 % (11.5-14.5)
[2024-09-13 16:47] LABS: Alanine Aminotransferase 17 U/L (6-50); Albumin Level 4.6 g/dL (3.5-5.1); Alkaline Phosphatase 68 U/L (38-126); Anion Gap 10 mmol/L (4-12); Aspartate Amino Transferase 22 U/L (17-59); Bilirubin,Total 0.7 mg/dL (0.2-1.3); Blood Urea Nitrogen 10 mg/dL (9-20); Calcium 9.5 mg/dL (8.4-10.2); Carbon Dioxide 28 mmol/L (22-30); Chloride 101 mmol/L (98-107); Estimated Glomerular Filt Rate > 60; Glucose 92 mg/dL (65-110); Potassium 3.9 mmol/L (3.4-5.0); Sodium 139 mmol/L (137-145)
[2024-09-14 09:04] LABS: CA 15-3 <5 U/mL (<32)
== END 2024-09-13 14:48 | disposition home or self-care (01) ==
LOC: ANHLAB 14:47
PROVIDERS: PCP Internal Medicine Hematology & Oncology; Visit Provider Internal Medicine Hematology & Oncology
DX: C50.822 Malignant neoplasm of overlapping sites of left male breast (principal); Z17.0 Estrogen receptor positive status [ER+]
CPT/HCPCS: 36415; 80053; 85025; 86300

== ENCOUNTER 2025-03-14 14:40 | Outpatient (CLI) | payer OTHER, SELFPAY ==
[2025-03-14 14:49] LABS: Hematocrit 38.3 % (42.0-52.0); Hemoglobin 12.7 g/dL (14.0-18.0); Immature Granulocyte Percent A 0.2 % (0-0.5); Lymphocytes Absolute Auto 1.64 K/mm3 (0.9-3.2); Mean Corpuscular HGB Conc 33.2 g/dl (32-36); Mean Corpuscular Hemoglobin 32.1 pg (26-34); Mean Corpuscular Volume 96.7 fl (80-100); Nucleated Red Blood Cells Absolute Auto 0.000 K/mm3 (0.0-0.012); Nucleated Red Blood Cells Perc 0.0 % (0.0-0.2); Platelet Count Result 231 k/mm3 (150-375); Red Blood Count 3.96 M/mm3 (4.6-6.20); White Blood Count 8.3 K/mm3 (4.5-10.0)
--- OUTSIDE RECORDS SUMMARY | 2025-03-14 14:50 | XMS_ITS ---
Author Organization [facility] Address [address], [facility] [address] [place] [address] Phone Care Team Providers Care Circus Roustabout Name Role Phone Luciano Oconnor MD Primary Care Provider [phone] Pete Cintron MD Unavailable [phone] Active Problems Problem Noted Date Diagnosed Date Malignant neoplasm involving both nipple and areola of left breast in male, estrogen receptor positive 08/29/2021 Current Treatment and Therapy Plans BREAST - DOSE-DENSE AC - CCSCI* Plan Start Date:09/02/2021 Plan Provider:Pete Cintron MD Linked Problems Malignant neoplasm involving both nipple and areola of left breast in male, estrogen receptor positive (HCC) Treatment Medications Current Day (Day 2 , Cycle 1 - Planned for 09/12/2021) Next Day (Day 1, Cycle 2 - Planned for 09/25/2021) cyclophosphamide (CYTOXAN) c hemo infusioncyclophosphamide in ns chemo infusionDOXOrubicin (ADRIAMYCIN) No medications scheduled. Cyclophosphamide (CYTOXAN) 1,220 mg in sodium chloride 0.9 % 250 mL chemo infusionDOXOrubicin (ADRIAMYCIN) injection 122.4 mg Past Treatment and Therapy Plans No past plan information found. Lifetime Dose Tracking * Chemical Lifetime Dose Automatic Entry Manual Entr y Doxorubicin 59.13 mg/m2 (122.4 mg) 59.13 mg/m2 (122.4 mg) 0 mg/m2 (0 mg)
--- OUTSIDE RECORDS SUMMARY | 2025-03-14 14:50 | XMS_ITS | Clinical Summary ---
Author Organization [facility] Address [address] [place] [id number] Care Team Providers Care Supervising Nurse Name Role Phone Provider, Abstract Primary Care Provider Unavail able Allergies No known active allergies Medications finasteride (PROSCAR) 5 mg tablet Take 1 Tablet by mouth daily. 03/26/2021 Active BABY ASPIRIN ORAL Take by mouth. Active zinc gluconate 50 mg Tablet Take 50 mg by mouth. Active multivitamin,tx- iron-ca-min (THERA-M) 27-0.4 mg Tablet Take 1 Tablet by mouth daily. Active CYANOCOBALAMIN, VITAMIN B-12, ORAL Take by mouth. Active tamoxifen (NOLVADEX) 20 mg tabletIndication s:Malignant neoplasm of overlapping sites of left breast in male, estrogen receptor positive (CMS/HCC) Take 1 Tablet (20 mg) by mouth daily. 90 Tablet 3 02/07/2025 Active Active Problems Problem Noted Date Diagnosed Date Prevention of chemotherapy-induced neutropenia 0 01/07/2022 Malignant neoplasm of overla pping sites of left breast in male, estrogen receptor positive 10/02/2021 Encounters Date Type Department Care Team Description 03/09/2025 External Device Data STL ABSTRACTION Provider, Abstract 03/08/2025 External Device Data STL ABSTRACTION Provider, Abstract 02/08/2025 External Device Data STL ABSTRACTION Provider, Abstract 02/07/2025 Refill [facility] Marichuy Reynoso [address] [place] [id number] Jordan Douglas MD Malignant neoplasm of overlapping sites of left breast in male, estrogen receptor positive (CMS/HCC) 01/18/2025 External Device Data STL ABSTRACTION Provider, Abstract 01/18/2025 External Device Data STL ABSTRACTION Provider, Abstract 01/12/2025 External Device Data STL ABSTRACTION Provider, Abstract 01/11/2025 External Device Data STL ABSTRACTION Provider, Abstract from Last 3 Months Family History Relation Name Status Comments Brother Alive Father Mother Sister 1 Alive Sister 2 Alive Sister 3 Alive Social History Tobacco Use Types Packs/Day Years Used Date Smoking Tobacco: Some Days Cigars Smokeless Tobacco: Never Alcohol Use Standard Drinks/Week Comments Yes 0 (1 standard drink = 0.6 oz pur e alcohol) Sex and Gender Information Value Date Recorded Sex Assigned at Not on file Legal Sex Male 9:08 AM CDT Gender Identity Not on file Sexual Orientation Not on file Last Filed Vital Signs Vital Sign Reading Time Taken Comments Blood Pressure 140/91 09/21/2024 2:05 PM INTRANET SPECIALIST patient states he is nervous Pulse 66 03/09/2024 3:11 PM CDT Temperature 36.7 C (98 F) 09/21/2024 2:02 PM INTRANET SPECIALIST Respiratory Rate 16 09/21/2024 2:02 PM INTRANET SPECIALIST Oxygen Saturation 97% 09/21/2024 2:0 2 PM INTRANET SPECIALIST Inhaled Oxygen Concentration - - Weight 86.7 kg (191 lb 3.2 oz) 09/21/2024 2:02 PM INTRANET SPECIALIST Height 175.3 cm (5' 9) 05/16/2022 1:58 PM CDT Body Mass Index 28.24 05/16/2022 1:58 PM CDT Plan of Treatment Upcoming Encounters Date Type Department Care Team (Late st Contact Info) Description 03/23/2025 3:30 PM CDT Office Visit [facility] - [place] [address] [facility] [address] [place] [address] Jordan Douglas MD [address] [facility] [address] [place] [address] Health Maintenance Due Date Last Done Comments Pre-Diabetes and Diabetes Screening 1960 COLORECTAL SCREENING 2006 Colorectal Cancer Screening 2006 FIT-DNA Q 3 years 2006 FIT/FOBT Q 1 year 2006 Flex Sig/CT Colonography Q 5 years 2006 ZOSTER VACCINE (1 of 2) 2011 COVID-19 Vaccine ( season) 2024 09/19/2022, 12/14/2020, 11/16/2020 Preventative Visit- Commercial 08/25/2024 06/06/2022 INFLUENZA VACCINE (#1) 2025 , 05/17/2021, 05/04/2020 DTAP/TDAP/TD VACCINES (2 - T d or Tdap) 03/04/2033 03/04/2023 RSV VACCINE (60+ or ) (1 - 1-dose 75+ series) [address] [place] [address] Care Teams Supervising Nurse Relationship Specialty Start Date End Date Provider, Abstract NO ADDRESS ON FILE PCP - General 10/04/21
--- OUTSIDE RECORDS SUMMARY | 2025-03-14 14:50 | XMS_ITS | Clinical Summary ---
Author Organization [facility] [address] Address [address] [place] [address] Care Team Providers Care Molasses Coloring Operator Name Role Phone Luciano Oconnor MD Unavailable [phone] Caleb Hanson MD Unavailable [phone] Marcos Vides MD Unavailable [phone] Jena Kelly NP Primary Care Provider Allergies No known active allergies Medications finasteride (PROSCAR) 5 mg tablet Take 5 mg by mouth daily 1 Active ascorbic svll-vgascqim-fl n (Emergen-C) 1,000 mg powder effervescent in packet Take 1 packet by mouth daily Active ondansetron (ZOFRAN) 4 mg tablet Take 1 tablet (4 mg total) by mouth every 8 (eight) hours as needed for nausea or vomiting 20 tablet 3 1 Active prochlorperazine (COMPAZINE) 10 mg tablet Take 1 tablet (10 mg total) by mouth every 6 (six) hours as needed for nausea 30 tablet 3 1 Active lidocaine-priloc liz (EMLA) creamIndications :Administration of Local Anesthesia Apply teaspoon amount to port area 30-45 minutes prior to appointment 30 g 3 1 Active Active Problems Problem Noted Date Diagnosed Date Encounter for prophylaxis fo r neutropenia due to chemotherapy 07/25/2021 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, left 1 Cancer Staging:Clinical:Stage IIIB(cT4b, cN1, cM0, G3, ER+, MD+, HER2-) - Signed by Caleb Hanson MD on 06/13/2021 Immunizations Immunization Administration Dates Next Due Influenza, Unspecified 05/17/2021 Tdap 03/04/2023 Surgical History Surgery Date Site/Laterality Comments BUNIONECTOMY Left COLONOSCOPY Medical History Medical History Date Comments Breast cancer (HCC) Enlarged prostate Family History Medical History Relation Name Comments No Known Problems Brother Calros Cancer Father Heart disease Mother No Known Problems Sister 1 Gege Love No Known Problems Sister 2 Cathi No Known Problems Sister 3 Lulu Love Relation Name Status Comments Brother Carlos Alive Father Maternal Grandfather Maternal Grandmother Mother Paternal Grandfather Paternal Grandmother Sister 1 Gege Love Alive Sister 2 Cathi Alive Sister 3 Lulu Love Alive Social History Tobacco Use Types Packs/Day Years Used Date Smoking Tobacco: Some Days Cigars Smokeless Tobacco: Never AUDIT-C Answer Date Recorded Q1: How often do you have a drink containing alc ohol? 2-3 times a week 06/13/2021 Q2: How many drinks containi ng alcohol do you have on a typical day when you are drinking? 1 or 2 06/13/2021 Q3: How often do you have si x or more drinks on one occasion? Less than monthly 06/13/2021 Personal Safety Answer Date Recorded Getting School Help Needed Not on file 03/07 Sex and Gender Information Value Date Recorded Sex Assigned at Not on file Legal Sex Male 12:18 AM FORMULATOR COMPOUNDER Gender Identity Not on file Sexual Orientation Not on file Obstetrics History Last Filed Vital Signs Vital Sign Reading Time Taken Comments Blood Pressure 161/95 03/05/2023 5:00 AM CDT Pulse 77 03/05/2023 3:30 AM CDT Temperature 36.7 C (98 F) 03/04/2023 10:03 PM CDT Respiratory Rate 18 03/05/2023 3:30 AM CDT Oxygen Saturation 96% 03/05/2023 5:00 AM CDT Inhaled Oxygen Concentration - - Weight 86.2 kg (190 lb) 03/04/2023 6:13 PM CDT Height 175.3 cm (5' 9) 03/04/2023 6:13 PM CDT Body Mass Index 28.06 03/04/2023 6:13 PM CDT Plan of Treatment Health Maintenance Due Date Last Done Comments Colon Cancer Screening-Colonoscopy 1960 Depression Screening 1960 Hepatitis C Screening 1960 Prostate Cancer Screening-PSA 1961 Hepatitis B Screening 1979 Regular Well Visit/Exam 18-64 1979 Pneumococcal vaccine <65 (1 of 2 - PCV) 1980 Zoster Vaccine (1 of 2) 2011 Covid-19 Vaccine (3 - season) 2024, 11/16/2020 Influenza Vaccine (Season Ended) 2025 06/06/20, 05/17/2021 DTaP/Tdap/Td Vaccine (2 - Td or Tdap) 03/04/203306/2023 Insurance [facility] [place] [address] [facility] Address: [address] [address] [place] [address] Care Teams Molasses Coloring Operator Relationship Specialty Start Date End Date Jena Kelly [place] [address] PCP - General Nurse Practitioner 03/04/23 Luciano Oconnor MD [address] [place] [address] [phone] Consulting Physician General Surgery 05/22/21 Caleb Hanson MD [address] [place] [address] [phone] Radiation Oncologist Radiation Oncology 06/13/21 Marcos Vides MD [address] [place] [address] [phone] Medical Oncologist/Printer'S Assistant Hematology and Oncology 06/13/21
--- OUTSIDE RECORDS SUMMARY | 2025-03-14 14:50 | XMS_ITS | Encounter Summary ---
Author Organization [facility] Address [address] [place] [address] Care Team Providers Care Stitcher Standard Machine Name Role Phone Jordan Douglas MD Unavailable [phone] Carlos Enrique Henry MD Unavailable [phone] Brenda Alas NP Primary Care Provider [phone] Encounter Details Date Type Department Care Team (Late st Contact Info) Description 10/06/2024 Tutorspree Message Enc [facility] Pre-[place]mission [place] [address] Maria Fernanda, [facility] Provider Please call Surgical Home at your earliest convenience Social History Tobacco Use Types Packs/Day Years Used Date Smoking Tobacco: Some Days Cigars Smokeless Tobacco: Never Comments:Smokes cigars when cuts grass or out in his boat fishing. Cigar use x 5 years Alcohol Use Standard Drinks/Week Comments Not Currently 0 (1 standard drink = 0.6 oz pure alcohol) less than 1 beer a month while on tamoxifen PHQ-2 Answer Date Recorded Patient Health Questionnaire-2 Score 0 10/06/2024 Sex and Gender Information Value Date Recorded Sex Assigned at Male 10/13/2024 7:00 AM WILLOW WORKER Legal Sex Male 6:10 PM CDT Gender Identity Not on file Sexual Orientation Not on file documented as of this encounter Functional Status * RETIRED Are you deaf or do you have serious difficulty hearing Answer Date of Assessment Author Status No 07/27/2021 5:00 PM WILLOW WORKER Activ e * RETIRED Are you blind or do you have serious difficulty seeing, even when wearing glasses? Answer Date of Assessment Author Status No 07/27/2021 5:00 PM WILLOW WORKER Activ e * Do you have serious difficulty walking or climbing stairs? Answer Date of Assessment Author Status No 07/27/2021 5:00 PM Sincere Baez RN Active * Do you have difficulty dressing or bathing? Answer Date of Assessment Author Status No 07/27/2021 5:00 PM Sincere Baez RN Active * Because of a physical, mental, or emotional condition, do you have difficulty doing errands alone such as visiting a doctor's office or shopping? Answer Date of Assessment Author Status No 07/27/2021 5:00 PM Sincere Baez RN Active * Over the past 2 weeks, how often have you been bothered by any of the following problems? Question Answer Date of Assessment Author Status Little interest or pleasure in doing things Not at all 10/06/2024 11:41 AM Marybeth Cespedes MA Active Feeling down, depressed, or hopeless Not at all 10/06/2024 11:41 AM Ericka Cespedes MA Active Patient Health Questionnaire-2 Score 0 10/06/2024 11:41 AM Guru Cespedes MA Active * If you checked off any problems on this questionnaire so far, Question Answer Date of Assessment Author Status How difficult have these problems made it for you to do your work, take care of things at home, or get along with other people? Not difficult at all 10/06/2024 11:41 AM Michael Cespedes MA Active documented as of this encounter Mental Status * Because of a physical, mental, or emotional condition, do you have serious difficulty concentrating, remembering, or making decisions? Answer Entry Date Author Status No 07/27/2021 5:00 PM Sincere Baez RN Active documented in this encounter Plan of Treatment Upcoming Encounters Date Type Department Care Team (Late st Contact Info) Description 05/19/2025 3:20 PM CDT Office Visit [facility] Family Medicine - [place] [address] [place] [address] Brenda Alas NP [address] [place] [address] documented as of this encounter Visit Diagnoses Not on filedocumented in this encounter Additional Health Concerns Assessment Noted Time PHQ-9 Depression Total Score: 1 06/06/20 22 2:54 PM CDT documented as of this encounter Care Teams Stitcher Standard Machine Relationship Specialty Start Date End Date Brenda Alas [place] [address] [address] PCP - General NURSE PRACTITIONER 10/04/24 Jordan Douglas MD [address] [place] [phone] HEMATOLOGY/ONCOLOGY 09/30/22 Carlos Enrique Henry MD [address] [place] [address] RADIATION ONCOLOGY 09/30/22 documented as of this encounter
--- OUTSIDE RECORDS SUMMARY | 2025-03-14 14:50 | XMS_ITS | Encounter Summary ---
Author Organization [facility] Address [address] [place] [address] Care Team Providers Care Health Care Coach Name Role Phone Toro Medley MD Primary Care Provider [phone] Jena Kelly PRODUCT SAFETY TECHNICIAN Primary Care Provider [facility]a [facility] Jordan Douglas MD Unavailable [phone] Carlos Enrique Henry MD Unavailable [phone] Carlos Enrique Rodriguez DO Primary Care Provider Brenda Alas NP Primary Care Provider [phone] Encounter Details Date Type Department Care Team (Late st Contact Info) Description 06/19/2020 Prep for Procedure [facility] Pre-Admission Testing [facility] [place] [address] August Perez, ALECIA [address], [place] [address] Social History Tobacco Use Types Packs/Day Years Used Date Smoking Tobacco: Some Days Cigars Smokeless Tobacco: Never Alcohol Use Standard Drinks/Week Comments Yes 10 (1 standard drink = 0.6 oz pu re alcohol) PHQ-2 Answer Date Recorded PHQ-2 Score 0 06/09/2020 Sex and Gender Information Value Date Recorded Sex Assigned at Male 10/13/2024 7:00 AM DINING ROOM HELPER Legal Sex Male 6:10 PM CDT Gender Identity Not on file Sexual Orientation Not on file COVID-19 Exposure Response Date Recorded In the last month, have you been in contact with someone who was confirmed or suspected to have Coronavirus / COVID-19? No / Unsure 06/19/2020 5:10 AM CDT documented as of this encounter Plan of Treatment Upcoming Encounters Date Type Department Care Team (Late st Contact Info) Description 05/19/2025 3:20 PM CDT Office Visit [facility] Family Medicine - [place] [address] [place] [id number] Brenda Alas NP [address] [place] [address] documented as of this encounter Results * PRE-SURGICAL/PRE-PROCEDURE CORONAVIRUS (COVID 19) (06/16/2020 9:20 AM CDT) CORONAVIRUS SARS COV 2 PCR (RESP) NOT DETECTED NOT DETECTED 06/17/2020 6:51 PM CDT [facility] Comment: A Not Detected (negative) test result for this test means that SARS- CoV-2 RNA was not present in the specimen above the limit of detection. A negative result does not rule out the possibility of COVID-19 and should not be used as the sole basis for treatment or patient management decisions. If COVID-19 is still suspected, based on exposure history together with other clinical findings, re-testing should be considered in consultation with public health authorities. Laboratory test results should always be considered in the context of clinical observations and epidemiological data in making a final diagnosis and patient management decisions. Please review the Fact Sheets and FDA authorized labeling available for health care providers and patients using the following websites: https://www.[employer]/home/Covid-19/HCP/NAAT/fact-sheet2 https://www.[employer]/home/Covid-19/Patients/NAAT/ fact-sheet2 This test has been authorized by the FDA under an Emergency Use Authorization (EUA) for use by authorized laboratories. Due to the current public health emergency, [facility] is receiving a high volume of samples from a wide variety of swabs and media for COVID-19 testing. In order to serve patients during this public health crisis, samples from appropriate clinical sources are being tested. Negative test results derived from specimens received in non-commercially manufactured viral collection and transport media, or in media and sample collection kits not yet authorized by FDA for COVID-19 testing should be cautiously evaluated and the patient potentially subjected to extra precautions such as additional clinical monitoring, including collection of an additional specimen. Methodology: Nucleic Acid Amplification Test (NAAT) includes RT-PCR or TMA Additional information about COVID-19 can be found at the [facility] website: www.[employer]/Covid19. Test performed at [facility] [place] [address] [facility] [place] [address] Director: CORNELIUS TURNER DO,MPH FIRST TEST YES 06/16/2020 10:19 AM CDT [facility] EMPLOYED IN HEALTHCARE NO 06/16/2020 10:19 AM CDT [facility] SYMPTOMATIC DEFINED BY CDC NO 06/16/2020 10:19 AM CDT [facility] DATE OF SYMPTOM ONSET NO 06/16/2020 10:33 AM CDT [facility] HOSPITALIZATION STATUS NO 06/16/2020 10:19 AM CDT [facility] PATIENT IN ICU NO 06/16/2020 10:19 AM CDT [facility] RESIDENT OF [facility] NO 06/16/2020 10:19 AM CDT [facility] NOT 06/16/2020 10:33 AM CDT [facility] PATIENT'S RACE WHITE OR 06/16/2020 10:19 AM CDT [facility] ETHNICITY NONHISPANIC 06/16/2020 10:19 AM CDT [facility] SOURCE (QST) NASOPHARYNGEAL SWAB 06/16/2020 10:19 AM CDT [facility] NASOPHARYNGEAL SWAB / Unknown 06/16/2020 9:20 AM CDT us August Perez DPM MICROBIOLOGY - GENERAL OR DERABLES Final Result [facility] [address] [place] [address], [facility] [address] [place] [address], documented in this encounter Visit Diagnoses Diagnosis Preoperative testing- Primary Preoperative examination, unspecified documented in this encounter Care Teams Health Care Coach Relationship Specialty Start Date End Date Toro Medley MD PCP - General FAMILY PRACTICE 04/28/20 02/21/22 Jena Kelly NP PCP - General NURSE PRACTITIONER 02/22/22 01/21/24 Carlos Enrique Rodriguez DO [address] [place], [place] [id number] PCP - General FAMILY PRACTICE 01/22/24 10/03/24 Brenda Alas NP [address] [place], [place] [id number] PCP - General NURSE PRACTITIONER 10/04/24 Jordan Douglas MD [facility] [address] [place] [address] HEMATOLOGY/ONCOLOGY 09/30/22 Carlos Enrique Henry MD [address] [place] [address] RADIATION ONCOLOGY 09/30/22 documented as of this encounter
--- OUTSIDE RECORDS SUMMARY | 2025-03-14 14:50 | XMS_ITS | Clinical Summary ---
Author Organization [facility] Address [address], [facility] [place] [address] [place] [address] Phone Care Team Providers Care Editorial Director Name Role Phone Luciano Oconnor MD Primary Care Provider [phone] Pete Cintron MD Unavailable [phone] Allergies No known active allergies Medications finasteride (PROSCAR) 5 MG Tablet Take 1 Tablet by mouth daily. 03/26/2021 Active Active Problems Problem Noted Date Diagnosed Date Malignant neoplasm involving both nipple and areola of left breast in male, estrogen receptor positive 08/29/2021 Social History Tobacco Use Types Packs/Day Years Used Date Smoking Tobacco: Some Days Cigars Smokeless Tobacco: Never Alcohol Use Standard Drinks/Week Comments Yes 0 (1 standard drink = 0.6 oz pur e alcohol) PHQ-2 Answer Date Recorded Total Score - Questions 1-9 0 08/25 Sex and Gender Information Value Date Recorded Sex Assigned at Not on file Legal Sex Male 3:30 PM APPLICATION SYSTEMS ENGINEER Gender Identity Not on file Sexual Orientation Not on file Last Filed Vital Signs Vital Sign Reading Time Taken Comments Blood Pressure 142/80 09/10/2021 10:36 AM APPLICATION SYSTEMS ENGINEER Pulse 65 09/10/2021 10:36 AM APPLICATION SYSTEMS ENGINEER Temperature 36 C (96.8 F) 09/10/2021 10:36 AM APPLICATION SYSTEMS ENGINEER Respiratory Rate 18 09/10/2021 10:36 AM APPLICATION SYSTEMS ENGINEER Oxygen Saturation 99% 09/10/2021 10:36 AM APPLICATION SYSTEMS ENGINEER Inhaled Oxygen Concentration - - Weight 87.7 kg (193 lb 6.4 oz) 09/10/2021 10:36 AM APPLICATION SYSTEMS ENGINEER Height 175.3 cm (5' 9) 09/10/2021 10:36 AM APPLICATION SYSTEMS ENGINEER Body Mass Index 28.56 09/10/2021 10:36 AM APPLICATION SYSTEMS ENGINEER Plan of Treatment Health Maintenance Due Date Last Done Comments Hepatitis C Virus (HCV) Screening 1961 TdaP Immunization 1961 Pneumococcal Immunization (50+ years) (1 of 2 - PCV) 1980 Zoster Immunization (1 of 2) 1980 Cologuard 2006 Colonoscopy 2006 Colorectal Cancer Screening 2006 Immunochemical Fecal Occult Blood 2006 Respiratory Syncytial Virus (RSV) Immunization (Adult) (1 - Risk 60-74 years 1-dose series) 2021 Mammogram 05/29/2022 05/29/2021 SARS-COV-2 Immunization ( - season) 2024 09/19/2022, 12/14/2020, 11/16/2020 Influenza Immunization (#1) 04/25/202505/25, 05/17/2021, 05/04/2020, Additional history exists Hepatitis B Immunization Aged Out No longer eligible based on patient's age to complete this topic Human Papillomavirus (HPV) Immunization Aged Out No longer eligible based on patient's age to complete this topic Meningococcal Immunization (ACWY) Aged Out No longer eligible based on patient's age to complete this topic Rotavirus Immunization Aged Out No lo nger eligible based on patient's age to complete this topic Insurance [employer] Care Teams Editorial Director Relationship Specialty Start Date End Date Luciano Oconnor MD [address] [place] [id number] PCP - General General Surgery 08/13/21 Pete Cintron MD [address] [place] [phone] Consulting Physician Oncology 08/13/21
--- OUTSIDE RECORDS SUMMARY | 2025-03-14 14:50 | XMS_ITS | Encounter Summary ---
Author Organization [facility] Address [address] [place] [address] Care Team Providers Care Drywall Installer Name Role Phone Toro Medley MD Primary Care Provider [phone] Jena Kelly ACADEMIC ADVISER Primary Care Provider Unavaila Jordan Davies MD Unavailable [phone] Carlos Enrique Henry MD Unavailable [phone] Carlos Enrique Rodriguez DO Primary Care Provider Brenda Alas NP Primary Care Provider [phone] Encounter Details Date Type Department Care Team (Late st Contact Info) Description 06/17/2021 Hospital Orders Only [facility] Med/Surg [address] [place] [address] Luciano Oconnor MD [facility] [address] Social History Tobacco Use Types Packs/Day Years Used Date Smoking Tobacco: Some Days Cigars Smokeless Tobacco: Never Alcohol Use Standard Drinks/Week Comments Yes 10 (1 standard drink = 0.6 oz pu re alcohol) PHQ-2 Answer Date Recorded PHQ-2 Score - If the patient scores above 3, please move on to questions 3-9 0 03/26/2021 Sex and Gender Information Value Date Recorded Sex Assigned at Male 10/13/2024 7:00 AM SUPPLY OFFICER Legal Sex Male 6:10 PM CDT Gender Identity Not on file Sexual Orientation Not on file COVID-19 Exposure Response Date Recorded In the last month, have you been in contact with someone who was confirmed or suspected to have Coronavirus / COVID-19? No / Unsure 06/19/2021 8:32 AM CDT documented as of this encounter H&P Notes * Luciano Oconnor MD - 06/17/2021 3:14 PM CDT Andrew Lipscomb 60-year-old male Date of Service: 06/17/2021 CHIEF COMPLAINT: Patient presents with left breast ulcerated mass left breast cancer HPI: History left breast mass left breast cancer PMH: Past Medical History: Diagnosis Date ??? BPH (benign prostatic hyperplasia) ??? Elevated PSA PSH: Past Surgical History: Procedure Laterality Date ??? BUNIONECTOMY Right 07/2020 ALL: No Known Allergies MEDS: Current: Prior to Admission medications Medication Sig Start Date End Date Taking? Authorizing Provider finasteride 5 MG tablet Take 1 tablet (5 mg total) by mouth daily. 03/26/21 Garry Bell MD Multiple Vitamins-Minerals (EMERGEN-C IMMUNE PLUS OR) Take 1 packet by mouth daily. MIXED WITH WATER Doc Abstract Social History Socioeconomic History ??? Marital status: Spouse name: Not on file ??? Number of children: Not on file ??? Years of education: Not on file ??? Highest education level: Not on file Occupational History ??? Not on file Tobacco Use ??? Smoking status: Current Some Day Smoker Types: Cigars ??? Smokeless tobacco: Never Used Substance and Sexual Activity ??? Alcohol use: Yes Alcohol/week: 10.0 standard drinks Types: 6 Cans of beer per week ??? Drug use: Never ??? Sexual activity: Not on file Other Topics Concern ??? Not on file Social History Narrative ??? Not on file Social Determinants of Health Financial Resource Strain: ??? Difficulty of Paying Living Expenses: Food Insecurity: ??? Worried About Running Out of Food in the Last Year: ??? Ran Out of Food in the Last Year: Transportation Needs: ??? Lack of Transportation (Medical): ??? Lack of Transportation (Non-Medical): Physical Activity: ??? Days of Exercise per Week: ??? Minutes of Exercise per Session: Stress: ??? Feeling of Stress : Social Connections: ??? Frequency of Communication with Friends and Family: ??? Frequency of Social Gatherings with Friends and Family: ??? Attends [employer] Services: ??? Active Member of Clubs or Organizations: ??? Attends Club or Organization Meetings: ??? Marital Status: Intimate Partner Violence: ??? Fear of Current or Ex-Partner: ??? Emotionally Abused: ??? Physically Abused: ??? Sexually Abused: Family History Problem Relation Name Age of Onset ??? Cancer Father ??? Diabetes Mother ??? Cancer Mother ??? No Known Problems Paternal Grandmother ??? No Known Problems Paternal Grandfather ??? No Known Problems Maternal Grandmother ??? No Known Problems Maternal Grandfather REVIEW OF SYSTEMS: 12 system review is negative aside from that mentioned in the HPI and PMH/PSH. PHYSICAL EXAM: There were no vitals filed for this visit. Physical Exam Alert and oriented no acute distress chest clear heart regular left breast mass noted left axillarylymphadenopathy abdomen soft extremities atraumatic no edema LABS: No results for input(s): WBC, RBC, HGB, HCT, NA, K, CL, CO2, AGAP, BUN, CR, BUNCREATININ, GFRNON, GFR, GLU, CA, TP, ALB, TBIL, ALKP, AST, ALT, LIPASE in the last 168 hours. IMAGING: Reviewed revealing left breast mass, left axillary lymphadenopathy IMPRESSION: Newly diagnosed left breast cancer with lymphadenopathy PLAN: Risk benefits ultrasound-guided lymph node biopsy reviewed with patient in clinic and he agrees to proceed LUCIANO OCONNOR MD 06/17/2021 documented in this encounter Plan of Treatment Upcoming Encounters Date Type Department Care Team (Late st Contact Info) Description 05/19/2025 3:20 PM CDT Office Visit [facility] Family Medicine - [place] [address] Brenda Alas NP [address] [place] [address] documented as of this encounter Visit Diagnoses Not on filedocumented in this encounter Additional Health Concerns Assessment Noted Time PHQ-9 Depression Total Score: 0 03/26/20 21 8:55 AM CDT documented as of this encounter Care Teams Drywall Installer Relationship Specialty Start Date End Date Toro Medley MD PCP - General FAMILY PRACTICE 04/28/20 02/21/22 Jena Kelly, ACADEMIC ADVISER PCP - General NURSE PRACTITIONER 02/22/22 01/21/24 Carlos Enrique Rodriguez DO [address] [place], [place] [id number] PCP - General FAMILY PRACTICE 01/22/24 10/03/24 Brenda Alas NP [address] [place] [address] PCP - General NURSE PRACTITIONER 10/04/24 Jordan Douglas MD [facility] [address] [address] HEMATOLOGY/ONCOLOGY 09/30/22 Carlos Enrique Henry MD [address] [place] [address] RADIATION ONCOLOGY 09/30/22 documented as of this encounter
--- OUTSIDE RECORDS SUMMARY | 2025-03-14 14:50 | XMS_ITS | Encounter Summary ---
Author Organization [facility] Address [facility] [place] [address] Care Team Providers Care Finishing Machine Tender Name Role Phone Jordan Douglas MD Unavailable [phone] Carlos Enrique Henry MD Unavailable [phone] Brenda Alas NP Primary Care Provider [phone] Encounter Details Date Type Department Care Team (Latest Contact Info) Description 02/15/2025 Results Follow-Up [facility] Family Medicine - [place] [address] [place] [address] Brenda Alas NP [address] [place], [place] [id number] CBC W/DIFF AUTOMATED, COMPREHENSIVE METABOLIC PANEL, LIPID PANEL, Additional followed-up results: 5 Social History Tobacco Use Types Packs/Day Years [...] Date Recorded Patient Health Questionnaire-2 Score 0 11/12/2024 Sex and Gender Information Value Date Recorded Sex Assigned at Male 10/13/2024 7:00 AM INSURANCE ANALYST Legal Sex Male 6:10 PM CDT Gender Identity Not on file Sexual Orientation Not on file documented as of this encounter Functional Status * RETIRED Are you deaf or do you have serious difficulty hearing Answer Date of Assessment Author Status No 07/27/2021 5:00 PM INSURANCE ANALYST Activ e * RETIRED Are you blind or do you have serious difficulty seeing, even when wearing glasses? Answer Date of Assessment Author Status No 07/27/2021 5:00 PM INSURANCE ANALYST Activ e * Do you have serious [...] 5:00 PM Sincere Baez RN Active documented as of this encounter Mental [...] Description 05/19/2025 3:20 PM CDT Office Visit [facility] Family Medicine - [address] [address] Brenda Alas NP [address] [place] [address] documented as of this encounter Visit Diagnoses Not on filedocumented in this encounter Additional Health Concerns Assessment Noted Time PHQ-9 Depression Total Score: 0 11/13/19 2:58 PM CDT documented as of this encounter Care Teams Finishing Machine Tender Relationship Specialty Start Date End Date Brenda Alas NP [address] [place] [address] PCP - General NURSE PRACTITIONER 10/04/24 Jordan Douglas MD [address] [address] HEMATOLOGY/ONCOLOGY 09/30/22 Carlos Enrique Henry MD [address] [place] [address] RADIATION ONCOLOGY 09/30/22 documented as of this encounter
--- OUTSIDE RECORDS SUMMARY | 2025-03-14 14:50 | XMS_ITS | Clinical Summary ---
Author Organization [facility] Address [address] [place] [address] Care Team Providers Care Caustic Plant Worker Name Role Phone Jordan Douglas MD Unavailable [phone] Carlos Enrique Henry MD Unavailable [phone] Brenda Alas NP Primary Care Provider [phone] Allergies No known active allergies Medications aspirin EC (ECOTRIN) 81 MG tablet Take 1 tablet (81 mg total) by mouth daily. Active tamoxifen (NOLVADEX) 20 MG tablet Take 1 tablet by mouth daily. 03/15/2022 Active finasteride (PROSCAR) 5 MG tabletIndications :Elevated prostate specific antigen (PSA) TAKE 1 TABLET BY MOUTH EVERY DAY 90 tablet 2 04/05/2022 Active Multiple Vitamin (MULTIVITAMIN ADULT OR) Active ZINC OR Take 50 mg by mouth daily. Active amLODIPine (NORVASC) 2.5 MG tabletIndications :Primary hypertension Take 1 tablet (2.5 mg total) by mouth daily. 90 tablet 1 11/12/2024 05/11/20 25 Active Active Problems Problem Noted Date Diagnosed Date Breast cancer (CMS/HCC [facility]/HCC) 07/27/2021 Elevated prostate specific antigen (PSA) 012 Resolved Problems Problem Noted Date Diagnosed Date Resolved Date Encounter for preventive health examination 10/31/2011 05/05/2020 Encounters Date Type Department Care Team Description 02/15/2025 3:00 PM CDT Office Visit [facility] Family Medicine - [place] [address] [place] [address] Brenda Alas NP BP Check 02/15/2025 Travel 02/15/2025 Results Follow-Up [facility] Family Medicine - [place] [address] [place] [address] Brenda Alas NP CBC W/DIFF AUTOMATED, COMPREHENSIVE METABOLIC PANEL, LIPID PANEL, Additional followed-up results: 5 02/07/2025 3:23 PM CDT - 02/07/2025 11:59 PM CDT Hospital Encounter [facility] [address] [place] [address] Brenda Alas NP Discharge Disposition: Home or Self Care (Routine Discharge) 02/07/2025 Travel from Last 3 Months Immunizations Immunization Administration Dates Next Due Fluzone 6 Months+ Quad (0.5 mL Prefilled Syringe) 06/06/2022,05/17/2021,05/04/2020 Influenza (Generic) 07/25/2019 MODERNA COVID-19 (12+) MRNA, LNP-S, PF, 100 MCG/ 0.5 ML DOSE 12/14/2020,11/16/2020 PFIZER COVID-19 BIVALENT (12 +) mRNA, LNP-S, PF, 30 MCG/0.3 ML DOSE 09/19/2022 Tdap (Generic) 03/04/2023 Family History Medical History Relation Comments Cancer Father No Known Problems Maternal Grandfather No Known Problems Maternal Grandmother Cancer Mother Diabetes Mother No Known Problems Paternal Grandfather No Known Problems Paternal Grandmother Relation Status Comments Father Maternal Grandfather Maternal Grandmother Mother Paternal Grandfather Paternal Grandmother Social History Tobacco Use Types Packs/Day Years Used Date Smoking Tobacco: Some Days Cigars Smokeless Tobacco: Never Tobacco Cessation:Counseling Given: No Comments:Smokes cigars when cuts grass or out [...] Sex Assigned at Male 10/13/2024 7:00 AM SENIOR CLINICAL RESEARCH SCIENTIST Legal Sex Male 6:10 PM CDT Gender Identity Not on file Sexual Orientation Not on file Last Filed Vital Signs Vital Sign Reading Time Taken Comments Blood Pressure 130/77 02/15/2025 2:43 PM CDT Pulse 71 02/15/2025 2:38 PM CDT Temperature 36.7 C (98 F) 02/15/2025 2:38 PM CDT Respiratory Rate 16 10/13/2024 11:49 AM SENIOR CLINICAL RESEARCH SCIENTIST Oxygen Saturation 100% 02/15/2025 2:38 PM CDT Inhaled Oxygen Concentration - - Weight 86.7 kg (191 lb 1.6 oz) 02/15/2025 2:38 P M CDT Height 175.3 cm (5' 9) 02/15/2025 2:38 PM CDT Body Mass Index 28.22 02/15/2025 2:38 PM CDT Plan of Treatment Upcoming Encounters Date Type Department Care Team (Late st Contact Info) Description 05/19/2025 3:20 PM CDT Office Visit [facility] Family Medicine - [place] [address] [place] [address] Brenda Alas NP [address] [place], [place] [id number] Health Maintenance Due Date Last Done Comments Colorectal Cancer Screening Colonoscopy (10 Years) 1961 Hepatitis C 1979 Pneumococcal Vaccine: 50+ Years (1 of 2 - PCV) 1980 Zoster Vaccines (1 of 2) 2011 Annual Physical 06/06/2023 06/06/2022 COVID-19 Vaccine (4 - 2023-2 5 season) 2024 09/19/2022, 12/14/2020, 11/16/2020 DTaP, Tdap and Td Vaccines ( 2 - Td or Tdap) 03/04/2033 03/04/2023 RSV Immunization or 60+ Years (1 - 1-dose 75+ series) 2036 PHQ-2 (Physician Palo) Completed 11/12/2024 Meningococcal B Vaccine Aged Out No l onger eligible based on patient's age to complete this topic Meningococcal Vaccine Aged Out No eder arnoldo eligible based on patient's age to complete this topic RSV Immunizations Under 20 Months Aged Out No longer eligible b ased on patient's age to complete this topic Medical Devices Implanted Type Area Miner Placer Device Identifier Shelf Expiration Date Model / Serial / Lot Mtp Fusion Plate Implanted:Qty: 1 on 06/19/2020 by August Perez DPM at [facility] Plate Right: Foot [employer] [id number] / / 3.5x14 Locking Screw Implanted:Qty: 2 on 06/19/2020 by August Perez DPM at [facility] Screw Right: Foot [employer] [id number] / / 3.5x30 Lag Screw Implanted:Qty: 1 on 06/19/2020 by August Perez DPM at [facility] Screw Right: Foot [employer] [id number] / / 3.5x18 Locking Screw Implanted:Qty: 2 on 06/19/2020 by August Perez DPM at [facility] Screw Right: Foot [employer] [id number] / / Explanted Type Area Miner Placer Device Identifier Shelf Expiration Date Model / Serial / Lot Cath Power Port Mri Implanted - [id number] Implanted:Qty : 1 on 07/27/2021 by Luciano Oconnor MD at [facility] Explanted:Qty : 1 on 10/01/2022 by Luciano Oconnor MD at [facility] Port Right: Chest [employer] BARD [id number] 01/22/2023 [id number] / / [id number] Procedures Procedure Name Priority Date/Time Associated Diagnosis Comments THYROXINE, FREE (FT4) Routine 02/07/2025 3:32 PM CDT PROSTATE SPECIFIC ANTIGEN,SCREENING Routine 02/07/2025 3:32 PM CDT Screening for prostate cancer HEMOGLOBIN, GLYCOSYLATED Routine 02/07/2025 3:32 PM CDT Elevated blood pressure reading VITAMIN D, 25 OH Routine 02/07/2025 3:32 PM CDT Elevated blood pressure reading TSH W/REFLEX Routine 02/07/2025 3:32 PM CDT Elevated blood pressure reading LIPID PANEL Routine 02/07/2025 3:32 PM CDT Elevated blood pressure reading COMPREHENSIVE METABOLIC PANEL Routine 02/07/2025 3:32 PM CDT Elevated blood pressure reading CBC W/DIFF AUTOMATED Routine 02/07/2025 3:32 PM CDT Elevated blood pressure reading from Last 3 Months Results * (ABNORMAL) TSH W/REFLEX (02/07/2025 3:32 PM CDT) TSH 5.760(H) 0.358 - 3.74 uIU/ML 02/07/2025 4:41 PM CDT [facility] Comment: HIGH DOSES OF BIOTIN MAY INTERFERE WITH THIS TEST RESULT. CORRELATION TO CLINICAL HISTORY AND PRESENTATION RECOMMENDED. 02/07/2025 3:32 PM CDT Brenda Alas NP LABORATORY Final Result [facility] [address] [place] [address], [place] [phone] * HEMOGLOBIN, GLYCOSYLATED (02/07/2025 3:32 PM CDT) HGB A1C 5.3 <5.7 % 02/08/2025 3:33 AM CDT [facility] Comment: ADA GUIDELINES 2010 5.7 TO 6.4% INCREASED RISK OF DIABETES > OR = 6.5% CONSISTENT WITH DIABETES ESTIMATED AVG GLUCOSE 105 mg/dL 02/08/2025 3:33 AM CDT [facility] 02/07/2025 3:32 PM CDT Brenda Escotoich SOCIAL WORK PROGRAM COORDINATOR LABORATORY Final Result Performing Organization Address [facility]/ZIP Co de Phone Number [facility] [address] [place] [address], [place] [phone] * PROSTATE SPECIFIC ANTIGEN,SCREENING (02/07/2025 3:32 PM CDT) PSA 3.23 <4.00 NG/ML 02/07/2025 4:41 PM CDT [facility] Comment: Test was performed using the Siemens method. Results obtained with other assay methods or kits cannot be used interchangeably with results obtained by the Siemens method. 02/07/2025 3:32 PM CDT Brenda Escotoich SOCIAL WORK PROGRAM COORDINATOR LABORATORY Final Result Performing Organization Address [facility] Co de Phone Number [facility] [address] [place] [address], [place] [phone] * (ABNORMAL) COMPREHENSIVE METABOLIC PANEL (02/07/2025 3:32 PM CDT) GLUCOSE 87 70 - 99 MG/DL 02/07/2025 4:41 PM CDT [facility] BUN 14 7 - 18 MG/DL 02/07/2025 4:41 PM CDT [facility] CREATININE S/P/B 1.02 0.7 - 1.3 MG/DL 02/07/2025 4:41 PM CDT [facility] SODIUM S/P/B 140 136 - 145 MMOL/L 02/07/2025 4:41 PM CDT [facility] POTASSIUM S/P/B 3.8 3.5 - 5.1 MMOL/L 02/07/2025 4:41 PM CDT [facility] CHLORIDE S/P/B 109 97 - 115 MMOL/L 02/07/2025 4:41 PM T [facility] CO2 28.0 21 - 32 MMOL/L 02/07/2025 4:41 PM T [facility] CALCIUM S/P/B 9.0 8.5 - 10.1 MG/DL 02/07/2025 4:41 PM CDT [facility] BILIRUBIN TOTAL S/P/B 0.7 0.2 - 1.2 MG/DL 02/07/2025 4:41 PM T [facility] Comment: THIS ASSAY IS NOT RECOMMENDED FOR PATIENTS UNDERGOING TREATMENT WITH ELTROMBOPAG DUE TO THE POTENTIAL FOR FALSELY ELEVATED RESULTS. TOTAL PROTEIN S/P/B 7.2 6.4 - 8.2 G/DL 02/07/2025 4:41 PM T [facility] ALBUMIN S/P/B 3.8 3.4 - 5.0 G/DL 02/07/2025 4:41 PM T [facility] AST 15 15 - 37 U/L 02/07/2025 4:41 PM T [facility] ALT 19 16 - 60 U/L 02/07/2025 4:41 PM T [facility] ALKALINE PHOSPHATASE S/P/B 60 50 - 136 U/L 02/07/2025 4:41 PM T [facility] ANION GAP 3.0 2 - 10 MMOL/L 02/07/2025 4:41 PM T [facility] BUN CREATININE RATIO 13.7 6 - 26 02/07/2025 4:41 PM T [facility] A/G RATIO 1.1 1.0 - 2.0 RATIO 02/07/2025 4:41 PM T [facility] GFR ESTIMATE 83(L) >90 ML/MIN/1.7 3 M2 02/07/2025 4:41 PM CDT [facility] Comment: NOTE: eGFR is not calculated for patients <18 years of age or gender unknown. This is an estimated GFR calculation using the new CKD EPI creatinine equation without race and so does not require a correction factor for race. This estimated GFR should not be used for calculating drug doses. 02/07/2025 3:32 PM CDT us Brenda Alas NP LABORATORY Final Result [facility] [address] [place] [address], * (ABNORMAL) LIPID PANEL (02/07/2025 3:32 PM CDT) CHOLESTEROL 177 <200 MG/DL 02/07/2025 4:41 PM CDT [facility] TRIGLYCERIDES 98 <150 MG/DL 02/07/2025 4:41 PM CDT [facility] HDL 49 >40.0 MG/DL 02/07/2025 4:41 PM CDT [facility] LDL (CALCULATED) 108(H) <100 MG/DL 02/07/2025 4:41 PM CDT [facility] Comment:CALCULATED USING THE FRIEDEWALD EQUATION NON HDL CHOLESTEROL 128 <130 MG/DL 02/07/2025 4:41 PM CDT [facility] CHOL/HDL RATIO 3.6 0.0 - 4.5 02/07/2025 4:41 PM CDT [facility] VLDL CALCULATION 20 5 - 55 MG/DL 02/07/2025 4:41 PM CDT [facility] LIPID INTERPRETATION 02/07/2025 4:41 PM CDT [facility] Comment: NIH CONCENSUS REPORT RECOMMENDATIONS: ADULT CHILD LOW RISK: CHOLESTEROL <200 <170 TRIGLYCERIDE <150 --- HDL >=60 --- LDL <100 <110 BORDERLINE: CHOLESTEROL 200-239 170-199 TRIGLYCERIDE 150-199 --- HDL 40-59 --- LDL 100-159 110-129 HIGH RISK: CHOLESTEROL >=240 >=200 TRIGLYCERIDE >=200 --- HDL <40 --- LDL >=160 >=130 02/07/2025 3:32 PM CDT us Brenda Alas NP LABORATORY Final Result [facility] [address] [place] [address], * (ABNORMAL) CBC W/DIFF AUTOMATED (02/07/2025 3:32 PM CDT) WBC 9.51 4.5 - 11.0 x10'3/uL 02/07/2025 4:07 PM CDT [facility] RBC 4.00(L) 4.70 - 6.10 x10'6/uL 02/07/2025 4:07 PM CDT [facility] HGB 13.1(L) 14.0 - 18.0 G/DL 02/07/2025 4:07 PM CDT [facility] HCT 39.1(L) 43.0 - 54.0 % 02/07/2025 4:07 PM CDT [facility] MCV 97.8(H) 80.0 - 94.0 FL 02/07/2025 4:07 PM CDT [facility] MCH 32.8(H) 27.0 - 31.0 PG 02/07/2025 4:07 PM CDT [facility] MCHC 33.5 32.0 - 36.0 G/DL 02/07/2025 4:07 PM CDT [facility] RDW 13.4 11.5 - 14.5 % 02/07/2025 4:07 PM CDT [facility] PLT 235 130 - 400 x10'3/uL 02/07/2025 4:07 PM CDT [facility] MPV 10.6 9.3 - 12.2 FL 02/07/2025 4:07 PM CDT [facility] DIFFERENTIAL TYPE AUTOMATED DIFFERENTIAL 02/07/2025 4:07 PM CDT [facility] NEUTROPHILS % 73.6 % 02/07/2025 4:07 PM CDT [facility] LYMPHOCYTES % 17.2 % 02/07/2025 4:07 PM CDT [facility] MONOCYTES % 6.4 % 02/07/2025 4:07 PM CDT [facility] EOSINOPHILS 1.7 % 02/07/2025 4:07 PM CDT [facility] BASOPHILS 0.8 % 02/07/2025 4:07 PM CDT [facility] IMMATURE GRANS % 0.3 % 02/08/20 4:07 PM CDT [facility] ABS. NEUTROPHILS 6.99 1.80 - 7.70 x10'3/uL 02/07/2025 4:07 PM CDT [facility] ABS. LYMPHOCYTES 1.64 1.00 - 4.80 x10'3/uL 02/07/2025 4:07 PM CDT [facility] ABS. MONOCYTES 0.61 0.30 - 0.82 x10'3/uL 02/07/2025 4:07 PM CDT [facility] ABS. EOSINOPHILS 0.16 0.04 - 0.54 x10'3/uL 02/07/2025 4:07 PM CDT [facility] ABS. BASOPHILS 0.08 0.01 - 0.08 x10'3/uL 02/07/2025 4:07 PM CDT [facility] ABS. IMMATURE GRANULOCYTES 0.03 0.00 - 0.49 x10'3/uL 02/07/2025 4:07 PM CDT [facility] 02/07/2025 3:32 PM CDT [facility] SOCIAL WORK PROGRAM COORDINATOR LABORATORY Final Result Performing Organization Address [facility] Co de Phone Number [facility] [address] [place] [address], [place] [phone] * THYROXINE, FREE (FT4) (02/07/2025 3:32 PM CDT) FREE T4 0.97 0.76 - 1.46 NG/DL 02/07/2025 6:27 PM CDT [facility] 02/07/2025 3:32 PM CDT [facility] SOCIAL WORK PROGRAM COORDINATOR LABORATORY Final Result Performing Organization Address [facility] Co de Phone Number [facility] [address] [place] [address] , [place] [phone] * VITAMIN D, 25 OH (02/07/2025 3:32 PM CDT) VITAMIN D 25 HYDROXY S/P/B 33 30 - 100 NG/ML 02/07/2025 5:11 PM CDT [facility] Comment: INTERPRETATION DEFICIENT <20 INSUFFICIENT 20-29 SUFFICIENT 30-100 02/07/2025 3:32 PM CDT [facility] SOCIAL WORK PROGRAM COORDINATOR LABORATORY Final Result Performing Organization Address City/[facility] Co de Phone Number [facility] [address] [place] [address], from Last 3 Months Insurance [facility] Advance Directives * Full Code (Latest Code Status on File) Date Activated Date Inactivated Comments 03/15/2021 10:41 AM 03/15/2021 1:08 PM Care Teams Caustic Plant Worker Relationship Specialty Start Date End Date Brenda Al[place] [address] PCP - General NURSE PRACTITIONER 10/04/24 Jrodan Douglas MD [address] [place] [id number] HEMATOLOGY/ONCOLOGY 09/30/22 Carlos Enrique Henry MD [address] [place] [address] RADIATION ONCOLOGY 09/30/22
--- OUTSIDE RECORDS SUMMARY | 2025-03-14 14:50 | XMS_ITS | Encounter Summary ---
Author Organization [facility] Address [facility] [place] [address] Care Team Providers Care Applications Processor Name Role Phone Jena Kelly FIRE LOOKOUT Primary Care Provider Unavaila Jordan Davies MD Unavailable [phone] Carlos Enrique Henry MD Unavailable [phone] Carlos Enrique Rodriguez DO Primary Care Provider [phone] Brenda Alas NP Primary Care Provider [phone] Reason for Visit * Reason Onset Date Comments Information 08/22/2022 Encounter Details Date Type Department Care Team (Late st Contact Info) Description 08/22/2022 Screenz Message Enc [facility] Family Medicine [facility] [address] [place] [address] Maria Fernanda, [facility] Provider Hematology/Onco;logy Social History Tobacco Use Types Packs/Day Years Used Date Smoking Tobacco: Some Days Cigars Smokeless Tobacco: Never Alcohol Use Standard Drinks/Week Comments Not Currently 10 (1 standard drink = 0.6 oz pu re alcohol) 2-3 beers/day PHQ-2 Answer Date Recorded PHQ-2 Score - If the patient scores above 3, please move on to questions 3-9 0 06/06/2022 Sex and Gender Information Value Date Recorded Sex Assigned at Male 10/13/2024 7:00 AM MEDIA MANAGER Legal Sex Male 6:10 PM CDT Gender Identity Not on file Sexual Orientation Not on file documented as of this encounter Functional Status * RETIRED Are you deaf or do you have serious difficulty hearing Answer Date of Assessment Author Status No 07/27/2021 5:00 PM MEDIA MANAGER Activ e * RETIRED Are you blind or do you have serious difficulty seeing, even when wearing glasses? Answer Date of Assessment Author Status No 07/27/2021 5:00 PM MEDIA MANAGER Activ e * Do you have serious [...] Baez RN Active documented in this encounter Progress Notes * Ricky Ace MA - 09/09/2022 10:07 AM CST The original question from Jena was why did the pt need this referral. He has breast cancer. A MANAGER * Lisandro Aguirre RN - 09/09/2022 8:16 AM CST FYI A MANAGER * Cathie Page - 09/06/2022 3:30 PM CST Pt stopped in the office regarding a letter he received and is not requesting a Aircraft Tool Maker/oncologist. Pt stated that he has his cancer doctor already They are Dr. Luciano Oconnor phone [phone] A MANAGER documented in this encounter Plan of Treatment Upcoming Encounters Date Type Department Care Team (Late st Contact Info) Description 05/19/2025 3:20 PM CDT Office Visit [facility] Family Medicine - [place] [address] [place] [address] Brenda Alas NP [address] [place], [place] [id number] documented as of this encounter Visit Diagnoses Not on filedocumented in this encounter Additional Health Concerns Assessment Noted Time PHQ-9 Depression Total Score: 1 06/06/20 2:54 PM CDT documented as of this encounter Care Teams Applications Processor Relationship Specialty Start Date End Date Jena Kelly, FIRE LOOKOUT PCP - General NURSE PRACTITIONER 02/22/22 01/21/24 Carlos Enrique Rodriguez DO [address] [place] [address] PCP - General FAMILY PRACTICE 01/22/24 10/03/24 Brenda Alas NP [address] [place] [address] PCP - General NURSE PRACTITIONER 10/04/24 Jordan Douglas MD [address] [address] HEMATOLOGY/ONCOLOGY 09/30/22 Carlos Enrique Henry MD [address] [place] [address] RADIATION ONCOLOGY 09/30/22 documented as of this encounter
--- OUTSIDE RECORDS SUMMARY | 2025-03-14 14:50 | XMS_ITS | Referral Summary ---
Author Organization [facility] Medical Office Building 1 Address [address] [place] [address] Care Team Providers Care Coating Machine Helper Name Role Phone Luciano Oconnor MD Unavailable [phone] Caleb Hanson MD Unavailable [phone] Marcos Vides MD Unavailable [phone] Jena Kelly NP Primary Care Provider [phone] Allergies No known active allergies Medications finasteride (PROSCAR) 5 mg tablet Take 5 mg by mouth daily 1 Active ascorbic vdnw-kvtkwnbt-fr n (Emergen-C) 1,000 mg powder effervescent in [...] Cancer Staging:Clinical:Stage IIIB(cT4b, cN1, cM0, G3, ER+, [place]+, HER2-) - Signed by Caleb Hanson MD on 06/13/2021 Immunizations Immunization Administration Dates Next Due Influenza, Unspecified 05/17/2021 Tdap 03/04/2023 Social History Tobacco Use Types Packs/Day Years [...] on file Legal Sex Male 12:18 AM GENERAL PRODUCTION MANAGER Gender Identity Not on file Sexual Orientation [...] 03/04/2023 6:13 PM CDT Plan of Treatment Not on file Insurance [facility] Address: [address] [address] [place] [address] [facility] H[facility]/PPO Address: [address] [address] [place] [address] Care Teams Coating Machine Helper Relationship Specialty Start Date End Date Jena Kelly [place] [address] PCP - General Nurse Practitioner 03/04/23 Luciano Oconnor MD [address] [place] [address] Consulting Physician General Surgery 05/22/21 Caleb Hanson MD [address] [place] [address] Radiation Oncologist Radiation Oncology 06/13/21 Marcos Vides MD [address] [place] [id number] Medical Oncologist/Zinc Furnace Charger Hematology and Oncology 06/13/21
--- OUTSIDE RECORDS SUMMARY | 2025-03-14 14:50 | XMS_ITS ---
Author Organization 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 Past Treatment and Therapy Plans Oncology Chemotherapy Treatment Plan Name Start Date Discontinue Date Treatment Medications Discontinue Reason Plan Provider Cycles Dose-Dense AC: DOXOrubicin (ADRIAMYCIN) / Cyclophosphamid e 14 Day Cycles followed by: Dose-Dense PACLItaxel 14 Day Cycles - Breast 202003/03/2025 cycloPHOSphamide (CYTOXAN)DOXOrubi hadley (ADRIAMYCIN)PACLi taxel (TAXOL) Automatic discontinuation of dormant plans Marcos Vides MD Treatment not started
== END 2025-03-14 14:41 | disposition home or self-care (01) ==
LOC: ANHLAB 14:40
PROVIDERS: Visit Provider Internal Medicine Hematology & Oncology
DX: C50.822 Malignant neoplasm of overlapping sites of left male breast (principal); Z17.0 Estrogen receptor positive status [ER+]
CPT/HCPCS: 36415; 85025

== ENCOUNTER 2025-06-13 15:15 | Outpatient (CLI) | payer OTHER, SELFPAY ==
[2025-06-13 15:28] LABS: Hematocrit 39.2 % (42.0-52.0); Hemoglobin 12.8 g/dL (14.0-18.0); Immature Granulocyte Percent A 0.3 % (0-0.5); Lymphocytes Absolute Auto 1.58 K/mm3 (0.9-3.2); Mean Corpuscular HGB Conc 32.7 g/dl (32-36); Mean Corpuscular Hemoglobin 31.9 pg (26-34); Mean Corpuscular Volume 97.8 fl (80-100); Nucleated Red Blood Cells Absolute Auto 0.000 K/mm3 (0.0-0.012); Nucleated Red Blood Cells Perc 0.0 % (0.0-0.2); Platelet Count Result 273 k/mm3 (150-375); Red Blood Count 4.01 M/mm3 (4.6-6.20); White Blood Count 10.4 K/mm3 (4.5-10.0)
[2025-06-13 16:27] LABS: Alanine Aminotransferase 28 U/L (6-50); Albumin Level 4.3 g/dL (3.5-5.1); Alkaline Phosphatase 65 U/L (38-126); Anion Gap 8 mmol/L (4-12); Aspartate Amino Transferase 54 U/L (17-59); Bilirubin,Total 0.8 mg/dL (0.2-1.3); Blood Urea Nitrogen 10 mg/dL (9-20); Calcium 9.3 mg/dL (8.4-10.2); Carbon Dioxide 29 mmol/L (22-30); Chloride 101 mmol/L (98-107); Estimated Glomerular Filt Rate > 60; Glucose 89 mg/dL (65-110); Potassium 4.3 mmol/L (3.4-5.0); Sodium 138 mmol/L (137-145); Total Protein 7.4 g/dL (6.3-8.2)
--- OUTSIDE RECORDS SUMMARY | 2025-06-13 17:52 | XMS_ITS | Clinical Summary ---
Author Organization [facility] rofessional Office [facility] Address [address] [place] [id number] Care Team Providers Care Shot Packer Name Role Phone Provider, Abstract Primary Care [...] (20 mg) by mouth daily. 90 Tablet 05/02/2025 Active Active Problems Problem Noted Date Diagnosed Date Prevention of chemotherapy-induced neutropenia 0 01/07/2022 Malignant neoplasm of overla pping sites of left breast in male, estrogen receptor positive 10/02/2021 Encounters Date Type Department Care Team Description 05/31/2025 External Device Data ST[facility] ABSTRACTION Provider, Abstract 05/10/2025 External Device Data [facility] ABSTRACTION Provider, Abstract 05/03/2025 External Device Data [facility] ABSTRACTION Provider, Abstract 05/02/2025 Refill [facility] Oncology and H[facility]ology - [address] [place] [id number] Jordan Douglas MD Malignant neoplasm of overlapping sites of left breast in male, estrogen receptor positive (CMS/HCC) 04/27/2025 External Device Data ST[facility] ABSTRACTION Provider, Abstract 04/12/2025 External Device Data [facility] ABSTRACTION Provider, Abstract 03/30/2025 External Device Data ST[facility] ABSTRACTION Provider, Abstract 03/17/2025 Orders Only [facility] Oncology and Hematology [address] [place] [address] Jordan Douglas MD from Last 3 Months Family History Relation [...] Comments Blood Pressure 140/91 09/21/2024 2:05 PM ASSOCIATE CHIEF NURSE patient states he is nervous Pulse 66 03/09/2024 3:11 PM CDT Temperature 36.7 C (98 F) 09/21/2024 2:02 PM ASSOCIATE CHIEF NURSE Respiratory Rate 16 09/21/2024 2:02 PM ASSOCIATE CHIEF NURSE Oxygen Saturation 97% 09/21/2024 2:0 2 PM ASSOCIATE CHIEF NURSE Inhaled Oxygen Concentration - - Weight 86.7 kg (191 lb 3.2 oz) 09/21/2024 2:02 PM ASSOCIATE CHIEF NURSE Height 175.3 cm (5' 9) 05/16/2022 1:58 PM CDT Body Mass Index 28.24 05/16/2022 1:58 PM CDT Plan of Treatment Upcoming Encounters Date Type Department Care Team (Late st Contact Info) Description 06/23/2025 3:45 PM CDT Office Visit [facility] Oncology and Hematology - [address] [place] [address] Jordan Douglas MD [address] [place] [address] [address] [place] [address] Health Maintenance Due Date Last Done Comments Pre-Diabetes and Diabetes Screening 1961 COLORECTAL SCREENING 2006 Colorectal Cancer Screening 2006 FIT-DNA Q 3 years 2006 FIT/FOBT Q 1 year 2006 Flex Sig/CT Colonography Q 5 years 2006 ZOSTER VACCINE (1 of 2) 2011 Preventative Visit- Commercial 08/25/2024 06/06/2022 INFLUENZA VACCINE (#1) 2025 2, 05/17/2021, 05/04/2020 COVID-19 Vaccine ( season) 2025 09/19/2022, 12/14/2020, 11/16/2020 DTAP/TDAP/TD VACCINES (2 - T d or Tdap) 03/04/2033 03/04/2023 RSV VACCINE (60+ or ) (1 - 1-dose 75+ series) 2036 Procedures Procedure Name Priority Date/Time Associated Diagnosis Comments CBC WITH AUTODIFFERENTIAL Routine 2024 8:30 AM CDT from Last 3 Months Results * CBC WITH AUTODIFFERENTIAL (03/14/2025 8:30 AM CDT) Blood us Jordan Douglas MD HEMATOLOGY ORDERABLES Final Res ult from Last 3 Months Insurance Attention Point [facility] [employer] [facility] Care Teams Shot Packer Relationship Specialty Start Date End Date Provider, Abstract NO ADDRESS ON FILE PCP - General 10/04/21
--- OUTSIDE RECORDS SUMMARY | 2025-06-13 17:52 | XMS_ITS | Clinical Summary ---
Author Organization [facility] Medical Office Building [address] Address [address] [place] [address] Care Team Providers Care Repair Manager Name Role Phone Luciano Oconnor MD Unavailable [phone] Caleb Hanson MD Unavailable [phone] Marcos Vides MD Unavailable [phone] Jena Kelly NP Primary Care Provider [phone] Allergies No known active allergies Medications finasteride (PROSCAR) 5 mg tablet Take 5 mg by mouth daily 1 Active ascorbic jwvc-binldmsf-kn n (Emergen-C) 1,000 mg powder effervescent in [...] Cancer Staging:Clinical:Stage IIIB(cT4b, cN1, cM0, G3, ER+, NV+, HER2-) - Signed by Caleb Hanson MD on 06/13/2021 Immunizations Immunization Administration Dates Next Due Influenza, Unspecified 05/17/2021 Tdap 03/04/2023 Surgical History Surgery Date Site/Laterality Comments BUNIONECTOMY Left COLONOSCOPY Medical History Medical History Date Comments Breast cancer (HCC) Enlarged prostate Family History Medical History Relation Name Comments No Known Problems Brother Carlos Cancer Father Heart disease Mother No Known [...] on file 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 Gender Identity Not on file Sexual [...] of 2) 2011 Covid-19 Vaccine (3 - Moderna risk series) 01/11/2021 12/14/2020, 11/16/2020 Influenza Vaccine (#1) 2025 06/06/2022, 2020 DTaP/Tdap/Td Vaccine (2 - Td or Tdap) 03/04/203306/2023 Insurance [facility] Address: [place] [address] [facility] CHOICE [employer] [facility] Address: [address] [address] [place] [address] Care Teams Repair Manager Relationship Specialty Start Date End Date Jena Kelly NP [address] [place] [address] PCP - General Nurse Practitioner 03/04/23 Luciano Oconnor MD [address] [place] [address] [phone] Consulting Physician General Surgery 05/22/21 Caleb Hanson MD [address] [place] [address] [phone] Radiation Oncologist Radiation Oncology 06/13/21 Marcos Vides MD [address] [place] [address] [phone] Medical Oncologist/Coo Hematology and Oncology 06/13/21
--- OUTSIDE RECORDS SUMMARY | 2025-06-13 17:52 | XMS_ITS | Clinical Summary ---
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 Gender Identity Not on file Sexual Orientation Not on file Last Filed Vital Signs Vital Sign Reading Time Taken Comments Blood Pressure 142/80 09/10/2021 10:36 AM TABLE GAMES FLOOR SUPERVISOR Pulse 65 09/10/2021 10:36 AM TABLE GAMES FLOOR SUPERVISOR Temperature 36 C (96.8 F) 09/10/2021 10:36 AM TABLE GAMES FLOOR SUPERVISOR Respiratory Rate 18 09/10/2021 10:36 AM TABLE GAMES FLOOR SUPERVISOR Oxygen Saturation 99% 09/10/2021 10:36 AM TABLE GAMES FLOOR SUPERVISOR Inhaled Oxygen Concentration - - Weight 87.7 kg (193 lb 6.4 oz) 09/10/2021 10:36 AM TABLE GAMES FLOOR SUPERVISOR Height 175.3 cm (5' 9) 09/10/2021 10:36 AM TABLE GAMES FLOOR SUPERVISOR Body Mass Index 28.56 09/10/2021 10:36 AM TABLE GAMES FLOOR SUPERVISOR Plan of Treatment Health Maintenance Due Date [...] years 1-dose series) 2021 Mammogram 05/29/2022 05/29/2021 Influenza Immunization (#1) 04/25/202505/25, 05/17/2021, 05/04/2020, Additional history exists SARS-COV-2 Immunization ( season) 2025 09/19/2022, 12/14/2020, 11/16/2020 Hepatitis B Immunization Aged Out No longer [...] patient's age to complete this topic Insurance [employer] Care Teams Sales Promotion Manager Relationship Specialty Start Date End Date Luciano Oconnor MD [address] [place] [id number] PCP - General General Surgery 08/13/21 Pete Cintron MD [address] [place] [phone] Consulting Physician Oncology 08/13/21
--- OUTSIDE RECORDS SUMMARY | 2025-06-13 17:52 | XMS_ITS ---
Author Organization [facility] Address [address], [facility] [address] [place] [address] Phone Care Team Providers Care Program Associate Name Role Phone Luciano Oconnor MD Primary Care Provider + [phone] Pete Cintron MD Unavailable [phone] Active Problems Problem Noted Date Diagnosed Date Malignant neoplasm involving both nipple and areola of left breast in male, estrogen receptor positive 08/29/2021 Current Treatment and Therapy Plans BREAST - DOSE-DENSE AC - CCSCI* Plan Start Date:09/02/2021 Plan Provider:Pete Cintron MD Linked Problems Malignant neoplasm involving both nipple and areola of left breast in male, estrogen receptor positive Treatment Medications Current Day (Day 2 , [...]
--- OUTSIDE RECORDS SUMMARY | 2025-06-13 17:52 | XMS_ITS ---
Author Organization 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
== END 2025-06-13 15:16 | disposition home or self-care (01) ==
PROVIDERS: Visit Provider Internal Medicine Hematology & Oncology
DX: C50.822 Malignant neoplasm of overlapping sites of left male breast (principal); Z17.0 Estrogen receptor positive status [ER+]
CPT/HCPCS: 36415; 80053; 85025; 86300